=== PATIENT | male | born 1935 | race Caucasian/White ===

== ENCOUNTER → 2017-06-01 | Day surgery (SDC) | payer MEDICARE, BC ==
[~2017-06-01] MED LIST: Lactated Ringers 1,000 ML IV SCH; Propofol 200 MG/20 ML SDV IV ONE; Sodium Chloride 0.9% 500 ML IV SCH
[2017-06-01 11:47] VITALS: BP 137/62
--- NOTE | 2017-06-05 07:23 | OR ---
DATE OF OPERATION: 06/01/2017 PREOPERATIVE DIAGNOSIS: 1. SWEET ESOPHAGUS. 2. HISTORY OF POLYPS. POSTOPERATIVE DIAGNOSIS: 1. SWEET ESOPHAGUS. 2. HISTORY OF POLYPS. SURGEON: Suraj Pimentel MD PROCEDURE: 1. EGD WITH BIOPSIES X4, ADELAIDA. 2. FULL-LENGTH COLONOSCOPY WITH SNARE POLYPECTOMY X1. 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 COMPLICATIONS: None. SPECIMEN: 1. Antral biopsy x2. 2. ADELAIDA. 3. Inflammatory polyps fundus. 4. Distal esophageal biopsies x2. 5. Tubulovillous adenoma of cecum. FINDINGS: 1. Full-length EGD. 2. Antral gastritis without ulceration. 3. Short segment Sweet's without stricturing or ulceration. 4. Full-length colonoscopy. 5. 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 6. Sigmoid diverticulosis. 7. Two small inflammatory polyps fundus. RECOMMENDATIONS: Medical followup for reports in 2 weeks. INDICATIONS: The patient has a history of Sweet esophagus. He is due for surveillance. He also has a history of polyp removal. He needs colonoscopy. DESCRIPTION OF PROCEDURE: The patient was prepped and draped, placed in the left lateral decubitus position. A lubricated Olympus gastroscope was inserted over a bit and advanced to cricopharyngeus and easily intubated in the esophagus. The esophageal lining was benign until its most distal portion. The patient has a few residual areas of short segment Sweet's. Two biopsies of those 2 small areas were taken without any complication. There were no signs of any stricturing, ulceration, or spontaneous GERD. Scope was advanced into the stomach through the pylorus and into the second portion of the duodenum. This and the duodenal bulb were benign. There was a small amount of gastritis of the distal antrum and 2 biopsies were taken along with a CLOtest. Retroflexion for full visualization of the rest of the fundus and cardia were unremarkable. The patient did have 2 small inflammatory polyps in the fundus of the stomach, and we did remove 1 in its entirety with 2 forceps biopsies. CLOtest was obtained. Air was then suctioned and scope was removed without complication. A lubricated Olympus colonoscope was inserted and safely and easily advanced to the cecum. Right in the cecal pouch from near the appendiceal orifice, the patient had a large tubulovillous adenoma greater than 0.5 cm. It was removed with a snare and suctioned into polyp trap #1 without difficulty. The rest of the right transverse and descending colon were benign. The patient does have scattered diverticular disease in the sigmoid colon, but no further signs of polyp, mass, ulceration, or bleeding sites were seen. The rectal vault was unremarkable. Retroflexion showed no perianal lesions. Air was suctioned. Scope was removed without complication. JAIMEE/SAMIA /[id number]
== END ==
LOC: CC.SDS 09:16
PROVIDERS: ATTEND Family Medicine
DX: Z12.11 Encounter for screening for malignant neoplasm of colon (principal); D12.0 Benign neoplasm of cecum; K31.7 Polyp of stomach and duodenum; K57.30 Diverticulosis of large intestine without perforation or abscess without bleeding; K21.0 Gastro-esophageal reflux disease with esophagitis; N40.0 Benign prostatic hyperplasia without lower urinary tract symptoms; Z86.010 Personal history of colon polyps; I10 Essential (primary) hypertension; E78.5 Hyperlipidemia, unspecified; Z79.82 Long term (current) use of aspirin; Z88.8 Allergy status to other drugs, medicaments and biological substances; Z79.899 Other long term (current) drug therapy; Z90.49 Acquired absence of other specified parts of digestive tract; Z72.0 Tobacco use
CPT/HCPCS: 00810; 43239; 45385; 87081; 88305; J2704; J7040

== ENCOUNTER → 2019-12-26 | Day surgery (SDC) | payer MEDICARE, BC ==
[~2019-12-26] MED LIST changes: +Ketamine 200 MG/20 ML MDV IV ONE; -Lactated Ringers 1,000 ML IV SCH; -Sodium Chloride 0.9% 500 ML IV SCH
[2019-12-26] MEDS: Lactated Ringers 1,000 ML IV SCH (08:58)
[2019-12-26 10:18] VITALS: BP 146/74; PULSE 60
--- NOTE | 2019-12-26 11:52 | OR ---
DATE OF OPERATION: 12/26/2019 PREOPERATIVE DIAGNOSIS: HISTORY OF SWEET'S. POSTOPERATIVE DIAGNOSIS: HISTORY OF SWEET'S. SURGEON: Suraj Pimentel MD PROCEDURE: SURVEILLANCE EGD. ANESTHESIA: MAC. COMPLICATIONS: None. SPECIMEN: 1. Fundal polyp biopsy x2. 2. Distal esophageal biopsy x2. FINDINGS: 1. Full-length EGD. 2. Adenomatous polyp of fundus. 3. Short-segment Sweet's, minimal. RECOMMENDATIONS: Two-year followup scope pending path report. INDICATIONS: The patient has a history of Sweet's in his past. It has been 2 years since his last EGD. We elected to proceed with surveillance scope. DESCRIPTION OF PROCEDURE: The patient was prepped and draped, placed in the left lateral decubitus position. A lubricated Olympus gastroscope was inserted over a bit, advanced to cricopharyngeus area, and easily intubated into the esophagus. The esophageal lining was benign until its most distal portion. His Z-line was crisp and sharp at 34 cm. There were 2 little small areas of short- segment Sweet's above this, both were biopsied. No other abnormalities were seen. No stricturing. The scope was advanced into the stomach, through the pylorus, and into the second portion of the duodenum. This and the duodenal bulb were benign. The scope was brought back in the stomach and retroflexed. The upper fundus and cardia appeared unremarkable. In the mid to distal portion of the fundus, the patient had a stalked adenomatous polyp. We elected to take 2 biopsies of this. No other lesions were seen. Air was suctioned, scope removed without complication. JAIMEE/SAMIA /[id number]
== END ==
LOC: CC.SDS 08:35
PROVIDERS: ATTEND Family Medicine
DX: K22.70 Barrett's esophagus without dysplasia (principal); K29.70 Gastritis, unspecified, without bleeding; K31.7 Polyp of stomach and duodenum; K21.0 Gastro-esophageal reflux disease with esophagitis; N40.0 Benign prostatic hyperplasia without lower urinary tract symptoms; I44.2 Atrioventricular block, complete; E78.5 Hyperlipidemia, unspecified; E11.9 Type 2 diabetes mellitus without complications; M54.2 Cervicalgia; C60.9 Malignant neoplasm of penis, unspecified; I11.9 Hypertensive heart disease without heart failure; Z11.59 Encounter for screening for other viral diseases; Z88.8 Allergy status to other drugs, medicaments and biological substances; Z79.84 Long term (current) use of oral hypoglycemic drugs; Z79.899 Other long term (current) drug therapy; Z95.0 Presence of cardiac pacemaker
CPT/HCPCS: 00731; 43239; 88305; J2704; J7120; U0002

== ENCOUNTER 2020-05-21 12:00 | Inpatient (IN) | payer MEDICARE, BC ==
--- NOTE | 2020-05-21 12:43 | EDM.PDOC ---
ED HPI GENERAL MEDICAL PROBLEM - General Chief Complaint: General Stated Complaint: COVID+. Weakness Time Seen by Provider: 05/21/20 12:25 Source of Information: Reports: Patient, RN History Limitations: Reports: Altered Mental Status - History of Present Illness INITIAL COMMENTS - FREE TEXT/NARRATIVE: Pt was told on Sunday that he had COVID and told to isolate. He states that he hasn't ate anything since then because he doesn't eat at home. He eats all his meals at [employer]. He didn't want to ask anybody to get him food. He states he dran about 3 cups of water yesterday. Friend checked on him today and found him more confused and weak and brought him to the ER. He denies SOB but does have occasional cough. Onset: Gradual - Related Data Allergies Allergy/AdvReac Type Severity Reaction Status Date / Time guaifenesin [From Entex LQ] Allergy Headache Verified 05/21/20 12:27 phenylephrine HCl Allergy Headache Verified 05/21/20 12:27 [From Entex LQ] pseudoephedrine HCl Allergy Diaphoresis Verified 05/21/20 12:27 [From Mucinex D] STEROID Allergy Cannot Uncoded 05/21/20 12:27 Remember Home Meds: Home Meds Omeprazole [Prilosec] 20 mg PO BID 10/08/13 [History] Tamsulosin [Flomax] 0.4 mg PO DAILY 10/08/13 [History] Simvastatin [Zocor] 40 mg PO BEDTIME 01/05/14 [History] Potassium Chloride 10 meq PO BID #60 01/06/14 [Rx] Finasteride [Proscar] 5 mg PO DAILY 08/27/14 [History] glipiZIDE [Glipizide ER] 5 mg PO DAILY 08/08/15 [History] lisinopriL [Lisinopril] 10 mg PO DAILY 12/24/19 [History] Past Medical History HEENT History: Reports: Hard of Hearing, Impaired Vision Cardiovascular History: Reports: High Cholesterol, Hypertension, Pacemaker Gastrointestinal History: Reports: GERD Other Gastrointestinal History: GE Genitourinary History: Reports: UTI, Recurrent Endocrine/Metabolic History: Reports: Diabetes, Type II Oncologic (Cancer) History: Reports: Other (See Below) Other Oncologic History: penile - Past Surgical History GI Surgical History: Reports: Appendectomy, Cholecystectomy, Colonoscopy, EGD, Hernia Repair/Other Male Surgical History: Reports: Other (See Below) 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 Denies: Shortness of Breath Cardiovascular: Reports: No Symptoms Endocrine: Reports: No Symptoms GI/Abdominal: Denies: Abdominal Pain, Constipation, Diarrhea, Nausea, Vomiting : Reports: No Symptoms Skin: Reports: No Symptoms Neurological: Reports: Confusion, Weakness ED EXAM, GENERAL - Physical Exam Exam: See Below Exam Limited By: No Limitations General Appearance: Alert, WD/WN, No Apparent Distress Ears: Normal External Exam, Normal Canal, Normal TMs Nose: Normal Inspection Throat/Mouth: Normal Inspection, Normal Oropharynx, Other (mouth is very dry.) Head: Atraumatic, Normocephalic Neck: Normal Inspection, Supple, Non-Tender Respiratory/Chest: Lungs Clear, Normal Breath Sounds Cardiovascular: Regular Rate, Rhythm, No Edema GI/Abdominal: Normal Bowel Sounds, Soft, Non-Tender, No Organomegaly Back Exam: Normal Inspection Extremities: Normal Inspection, Normal Range of Motion, No Pedal Edema, Normal Capillary Refill Neurological: Alert, Confused (to day.) Skin Exam: Warm, Dry, Intact (very dry sin) Course - Vital Signs Last Recorded V/S: Last Vital Signs Temp 98.3 F 05/24/20 02:56 Pulse 65 05/24/20 02:56 Resp 20 05/24/20 02:56 BP 162/65 H 05/24/20 02:56 Pulse Ox 96 05/24/20 02:56 - Orders/Labs/Meds Orders: Medication Orders Acetaminophen (Tylenol) 650 mg PO Q4H PRN PRN Reason: Pain (Mild 1-3)/fever Last Admin: 05/23/20 19:49 Dose: 650 mg Documented by: Admin: 05/21/20 20:23 Dose: 650 mg Documented by: ISRA Enoxaparin Sodium (Lovenox) 30 mg SUBCUT DAILY@1999 [facility] Last Admin: 05/23/20 19:48 Dose: 30 mg Documented by: Admin: 05/22/20 20:01 Dose: 30 mg Documented by: ISRA Finasteride (Proscar) 5 mg PO DAILY [facility] Last Admin: 05/23/20 07:40 Dose: 5 mg Documented by: Admin: 05/22/20 07:46 Dose: 5 mg Documented by: BINH Glipizide (Glucotrol Xl) 5 mg PO DAILY [facility] Last Admin: 05/23/20 07:40 Dose: 5 mg Documented by: Admin: 05/22/20 07:46 Dose: Not Given Documented by: BINH Ibuprofen (Motrin) 800 mg PO Q8H PRN PRN Reason: Fever Last Admin: 05/22/20 20:00 Dose: 800 mg Documented by: ISAR Lisinopril (Prinivil) 10 mg PO DAILY [facility] Last Admin: 05/23/20 07:40 Dose: 10 mg Documented by: Admin: 05/22/20 07:46 Dose: 10 mg Documented by: BINH Ondansetron HCl (Zofran Odt) 4 mg PO Q4H PRN PRN Reason: nausea, able to take PO Pantoprazole Sodium (Protonix) 40 mg PO BID [facility] Last Admin: 05/23/20 19:48 Dose: 40 mg Documented by: Admin: 05/23/20 07:40 Dose: 40 mg Documented by: Admin: 05/22/20 20:00 Dose: 40 mg Documented by: Admin: 05/22/20 07:46 Dose: 40 mg Documented by: Admin: 05/21/20 20:21 Dose: 40 mg Documented by: ISRA Potassium Chloride (Klor-Con 10) 10 meq PO BID [facility] Last Admin: 05/23/20 19:47 Dose: 10 meq Documented by: Admin: 05/23/20 07:40 Dose: 10 meq Documented by: Admin: 05/22/20 20:00 Dose: 10 meq Documented by: Admin: 05/22/20 07:46 Dose: 10 meq Documented by: Admin: 05/21/20 20:21 Dose: 10 meq Documented by: ISRA Simvastatin (Zocor) 40 mg PO BEDTIME [facility] Last Admin: 05/23/20 19:49 Dose: 40 mg Documented by: Admin: 05/22/20 20:00 Dose: 40 mg Documented by: Admin: 05/21/20 20:21 Dose: 40 mg Documented by: ISRA Sodium Chloride (Saline Flush) 10 ml FLUSH ASDIRECTED PRN PRN Reason: Keep Vein Open Tamsulosin HCl (Flomax) 0.4 mg PO DAILY [facility] Last Admin: 05/23/20 07:40 Dose: 0.4 mg Documented by: Admin: 05/22/20 07:46 Dose: 0.4 mg Documented by: BINH Labs: Laboratory Tests 05/21/20 05/21/20 05/21/20 Range/Units 12:27 12:27 12:27 WBC 5.6 (5.0-10.0) 10^3/uL RBC 5.31 (4.50-6.00) 10^6/uL Hgb 14.5 (14.0-18.0) g/dL Hct 44.9 (40.0-54.0) % MCV 84.6 (82.0-94.0) fL MCH 27.3 (27.0-32.0) pg MCHC 32.3 L (33.0-38.0) g/dL RDW Coeff of Erinn 15.8 H (11.0-15.0) % Plt Count 243 (150-400) 10^3/uL Neut % (Auto) 72.6 (35-85) % Lymph % (Auto) 12.1 (10-55) % Darke % (Auto) 15.1 (0-16) % Eos % (Auto) 0 (0-5) % Baso % (Auto) 0.2 (0-3) % Neut # (Auto) 4.09 (1.80-7.00) 10^3/uL Lymph # (Auto) 0.68 L (1.00-4.80) 10^3/uL Darke # (Auto) 0.85 H (0.00-0.80) 10^3/uL Eos # (Auto) 0.00 (0.00-0.45) 10^3/uL Baso # (Auto) 0.01 10^3/uL D-Dimer, Quantitative 2.29 H (0.00-0.50) Sodium 139 (136-145) mEq/L Potassium 4.9 (3.5-5.0) mEq/L Chloride 106 (98-106) mEq/L Carbon Dioxide 15 L D (21-32) mmol/L BUN 49 H D (7-18) mg/dL Creatinine 2.4 H D (0.7-1.3) mg/dL Est Cr Clr Drug Dosing 21.05 mL/min Estimated GFR (MDRD) 26 L (>=60) mL/min Glucose 53 L D (75-99) mg/dL Lactic Acid (0.4-2.0) mmol/L Calcium 8.6 (8.4-10.1) mg/dL Magnesium 2.3 (1.8-2.4) mg/dL Total Bilirubin 0.4 (0.0-1.0) mg/dL AST 37 (15-37) U/L ALT 25 (12-78) U/L Alkaline Phosphatase 64 (46-116) U/L C-Reactive Protein 7.4 H (0.2-0.8) mg/dL Total Protein 7.3 (6.4-8.2) g/dL Albumin 3.1 L (3.4-5.0) g/dL 05/21/20 Range/Units 12:27 WBC (5.0-10.0) 10^3/uL RBC (4.50-6.00) 10^6/uL Hgb (14.0-18.0) g/dL Hct (40.0-54.0) % MCV (82.0-94.0) fL MCH (27.0-32.0) pg MCHC (33.0-38.0) g/dL RDW Coeff of Erinn (11.0-15.0) % Plt Count (150-400) 10^3/uL Neut % (Auto) (35-85) % Lymph % (Auto) (10-55) % Darke % (Auto) (0-16) % Eos % (Auto) (0-5) % Baso % (Auto) (0-3) % Neut # (Auto) (1.80-7.00) 10^3/uL Lymph # (Auto) (1.00-4.80) 10^3/uL Darke # (Auto) (0.00-0.80) 10^3/uL Eos # (Auto) (0.00-0.45) 10^3/uL Baso # (Auto) 10^3/uL D-Dimer, Quantitative (0.00-0.50) Sodium (136-145) mEq/L Potassium (3.5-5.0) mEq/L Chloride (98-106) mEq/L Carbon Dioxide (21-32) mmol/L BUN (7-18) mg/dL Creatinine (0.7-1.3) mg/dL Est Cr Clr Drug Dosing mL/min Estimated GFR (MDRD) (>=60) mL/min Glucose (75-99) mg/dL Lactic Acid 1.5 (0.4-2.0) mmol/L Calcium (8.4-10.1) mg/dL Magnesium (1.8-2.4) mg/dL Total Bilirubin (0.0-1.0) mg/dL AST (15-37) U/L ALT (12-78) U/L Alkaline Phosphatase (46-116) U/L C-Reactive Protein (0.2-0.8) mg/dL Total Protein (6.4-8.2) g/dL Albumin (3.4-5.0) g/dL Meds: Medications Generic Name Dose Route Start Last Admin Trade Name Freq PRN Reason Stop Dose Admin Acetaminophen 650 mg 05/21/20 13:25 05/23/20 19:49 Tylenol PO 650 mg Q4H PRN Administration Pain (Mild 1-3)/fever Enoxaparin Sodium 30 mg 05/22/20 20:00 05/23/20 19:48 Lovenox SUBCUT 30 mg DAILY@1999 [facility] Administration Finasteride 5 mg 05/22/20 08:00 05/23/20 07:40 Proscar PO 5 mg DAILY CARMEN Administration Glipizide 5 mg 05/22/20 08:00 05/23/20 07:40 Glucotrol Xl PO 5 mg DAILY CARMEN Administration Ibuprofen 800 mg 05/21/20 22:01 05/22/20 20:00 Motrin PO 800 mg Q8H PRN Administration Fever Lisinopril 10 mg 05/22/20 08:00 05/23/20 07:40 Prinivil PO 10 mg DAILY CARMEN Administration Ondansetron HCl 4 mg 05/21/20 13:25 Zofran Odt PO Q4H PRN nausea, able to take PO Pantoprazole Sodium 40 mg 05/21/20 20:00 05/23/20 19:48 Protonix PO 40 mg BID CARMEN Administration Potassium Chloride 10 meq 05/21/20 20:00 05/23/20 19:47 Klor-Con 10 PO 10 meq BID CARMEN Administration Simvastatin 40 mg 05/21/20 20:00 05/23/20 19:49 Zocor PO 40 mg BEDTIME CARMEN Administration Sodium Chloride 10 ml 05/21/20 13:25 Saline Flush FLUSH ASDIRECTED PRN Keep Vein Open Tamsulosin HCl 0.4 mg 05/22/20 08:00 05/23/20 07:40 Flomax PO 0.4 mg DAILY CARMEN Administration Discontinued Medications Generic Name Dose Route Start Last Admin Trade Name Freq PRN Reason Stop Dose Admin Dextrose/Sodium Chloride 1,000 mls @ 100 mls/hr 05/21/20 13:15 05/21/20 13:20 Dextrose 5%-1/2 Ns IV 100 mls/hr ASDIRECTED CARMEN Administration Sodium Chloride 1,000 mls @ 75 mls/hr 05/21/20 16:00 05/22/20 20:02 Normal Saline IV 75 mls/hr ASDIRECTED CARMEN Administration Departure - Departure Time of Disposition: 14:30 Disposition: Admitted As Inpatient 68 Condition: Fair Clinical Impression: COVID-19, Weakness, Failure to thrive in adult - Discharge Information *PRESCRIPTION DRUG MONITORING PROGRAM REVIEWED*: Not Applicable *COPY OF PRESCRIPTION DRUG MONITORING REPORT IN PATIENT TAMIKO: Not Applicable Sepsis Event Note (ED) - Evaluation Sepsis Screening Result: No Definite Risk - Problem List & Annotations (1) COVID-19 SNOMED Code(s): 214060785 Code(s): U07.1 - COVID-19 Status: Acute Priority: High Current Visit: Yes (2) Failure to thrive in adult SNOMED Code(s): 190316947 Code(s): R62.7 - ADULT FAILURE TO THRIVE Status: Acute Priority: High Current Visit: Yes (3) Weakness SNOMED Code(s): 30792364 Code(s): R53.1 - WEAKNESS Status: Acute Priority: High Current Visit: Yes - Problem List Review Problem List Initiated/Reviewed/Updated: Yes - Assessment/Plan Admission H&P: Please use this note as an admission H&P
[2020-05-21] MEDS ORDERED: Dextrose 5%-0.45% NaCl 1,000 ML IV SCH (13:15)
[2020-05-21] MEDS ORDERED: Ondansetron 4 MG Tab.DIS PO PRN (13:25)
[2020-05-21] MEDS ORDERED: Sodium Chloride 0.9% 10 ML Syringe FLUSH PRN (13:25)
[2020-05-21] MEDS: Sodium Chloride 0.9% 1,000 ML IV SCH (16:17)
[2020-05-21] MEDS: Potassium Chloride 10 MEQ Tab.ER PO SCH (20:21)
[2020-05-21] MEDS: Simvastatin 40 MG Tab PO SCH (20:21)
[2020-05-21] MEDS: Pantoprazole 40 MG Tab.CR PO SCH (20:21)
[2020-05-21] MEDS: Acetaminophen 325 MG Tab PO PRN (20:23)
[2020-05-21] MEDS ORDERED: Ibuprofen 200 MG Tab PO PRN (22:01)
[2020-05-22] MEDS: Sodium Chloride 0.9% 1,000 ML IV SCH ×2 (05:21→20:02)
[2020-05-22] MEDS: Pantoprazole 40 MG Tab.CR PO SCH ×2 (07:46→20:00)
[2020-05-22] MEDS: Tamsulosin 0.4 MG Cap.ER PO SCH (07:46)
[2020-05-22] MEDS: Finasteride 5 MG Tab PO SCH (07:46)
[2020-05-22] MEDS: Lisinopril 10 MG Tab PO SCH (07:46)
[2020-05-22] MEDS: glipiZIDE 5 MG Tab.ER PO SCH (07:46)
[2020-05-22] MEDS: Potassium Chloride 10 MEQ Tab.ER PO SCH ×2 (07:46→20:00)
--- NOTE | 2020-05-22 10:43 | PCM.PN ---
- General Info Date of Service: 05/22/20 Functional Status: Reports: Pain Controlled, Tolerating Diet, Ambulating (with assistance) - Review of Systems General: Reports: Weakness (generalized), Fatigue HEENT: Reports: No Symptoms Pulmonary: Reports: Shortness of Breath (mild) Cardiovascular: Reports: No Symptoms Gastrointestinal: Reports: No Symptoms Genitourinary: Reports: No Symptoms Musculoskeletal: Reports: No Symptoms Skin: Reports: No Symptoms Neurological: Reports: No Symptoms Psychiatric: Reports: No Symptoms - Patient Data Vitals - Most Recent: Last Vital Signs Temp 97.8 F 05/22/20 07:56 Pulse 68 05/22/20 07:56 Resp 16 05/22/20 07:56 BP 120/66 05/22/20 07:56 Pulse Ox 97 05/22/20 07:56 Weight - Most Recent: 150 lb I&O - Last 24 Hours: Intake & Output 05/21/20 05/22/20 05/22/20 22:59 06:59 14:59 Intake Total 1180 Output Total 200 Balance 980 Lab Results Last 24 Hours: Laboratory Results - last 24 hr 05/21/20 05/21/20 05/21/20 Range/Units 12:27 12:27 12:27 WBC 5.6 (5.0-10.0) 10^3/uL RBC 5.31 (4.50-6.00) 10^6/uL Hgb 14.5 (14.0-18.0) g/dL Hct 44.9 (40.0-54.0) % MCV 84.6 (82.0-94.0) fL MCH 27.3 (27.0-32.0) pg MCHC 32.3 L (33.0-38.0) g/dL RDW Coeff of Erinn 15.8 H (11.0-15.0) % Plt Count 243 (150-400) 10^3/uL Neut % (Auto) 72.6 (35-85) % Lymph % (Auto) 12.1 (10-55) % [place] % (Auto) 15.1 (0-16) % Eos % (Auto) 0 (0-5) % Baso % (Auto) 0.2 (0-3) % Neut # (Auto) 4.09 (1.80-7.00) 10^3/uL Lymph # (Auto) 0.68 L (1.00-4.80) 10^3/uL [place] # (Auto) 0.85 H (0.00-0.80) 10^3/uL Eos # (Auto) 0.00 (0.00-0.45) 10^3/uL Baso # (Auto) 0.01 10^3/uL Add Manual Diff Neutrophils % (Manual) (35-85) % Band Neutrophils % (0-5) % Lymphocytes % (Manual) (21-55) % Monocytes % (Manual) (2-12) % Eosinophils % (Manual) (0-5) % Absolute Neutrophils (1.80-7.00) 10^3/uL Lymphocytes # (Manual) (1.00-4.80) 10^3/uL Monocytes # (Manual) (0.00-0.80) 10^3/uL Eosinophils # (Manual) (0.00-0.45) 10^3/uL Platelet Estimate (ADEQUATE) D-Dimer, Quantitative 2.29 H (0.00-0.50) Sodium 139 (136-145) mEq/L Potassium 4.9 (3.5-5.0) mEq/L Chloride 106 (98-106) mEq/L Carbon Dioxide 15 L D (21-32) mmol/L BUN 49 H D (7-18) mg/dL Creatinine 2.4 H D (0.7-1.3) mg/dL Est Cr Clr Drug Dosing 21.05 mL/min Estimated GFR (MDRD) 26 L (>=60) mL/min Glucose 53 L D (75-99) mg/dL Lactic Acid (0.4-2.0) mmol/L Calcium 8.6 (8.4-10.1) mg/dL Magnesium 2.3 (1.8-2.4) mg/dL Total Bilirubin 0.4 (0.0-1.0) mg/dL AST 37 (15-37) U/L ALT 25 (12-78) U/L Alkaline Phosphatase 64 (46-116) U/L C-Reactive Protein 7.4 H (0.2-0.8) mg/dL Total Protein 7.3 (6.4-8.2) g/dL Albumin 3.1 L (3.4-5.0) g/dL 05/21/20 05/22/20 05/22/20 Range/Units 12:27 07:05 07:05 WBC 3.9 L (5.0-10.0) 10^3/uL RBC 4.51 (4.50-6.00) 10^6/uL Hgb 12.1 L (14.0-18.0) g/dL Hct 38.2 L (40.0-54.0) % MCV 84.7 (82.0-94.0) fL MCH 26.8 L (27.0-32.0) pg MCHC 31.7 L (33.0-38.0) g/dL RDW Coeff of Erinn 15.4 H (11.0-15.0) % Plt Count 197 (150-400) 10^3/uL Neut % (Auto) (35-85) % Lymph % (Auto) (10-55) % [place] % (Auto) (0-16) % Eos % (Auto) (0-5) % Baso % (Auto) (0-3) % Neut # (Auto) (1.80-7.00) 10^3/uL Lymph # (Auto) (1.00-4.80) 10^3/uL [place] # (Auto) (0.00-0.80) 10^3/uL Eos # (Auto) (0.00-0.45) 10^3/uL Baso # (Auto) 10^3/uL Add Manual Diff Yes Neutrophils % (Manual) 60 (35-85) % Band Neutrophils % 2 (0-5) % Lymphocytes % (Manual) 20 L (21-55) % Monocytes % (Manual) 17 H (2-12) % Eosinophils % (Manual) 1 (0-5) % Absolute Neutrophils 2.42 (1.80-7.00) 10^3/uL Lymphocytes # (Manual) 0.78 L (1.00-4.80) 10^3/uL Monocytes # (Manual) 0.66 (0.00-0.80) 10^3/uL Eosinophils # (Manual) 0.04 (0.00-0.45) 10^3/uL Platelet Estimate Adequate (ADEQUATE) D-Dimer, Quantitative 0.83 H (0.00-0.50) Sodium (136-145) mEq/L Potassium (3.5-5.0) mEq/L Chloride (98-106) mEq/L Carbon Dioxide (21-32) mmol/L BUN (7-18) mg/dL Creatinine (0.7-1.3) mg/dL Est Cr Clr Drug Dosing mL/min Estimated GFR (MDRD) (>=60) mL/min Glucose (75-99) mg/dL Lactic Acid 1.5 (0.4-2.0) mmol/L Calcium (8.4-10.1) mg/dL Magnesium (1.8-2.4) mg/dL Total Bilirubin (0.0-1.0) mg/dL AST (15-37) U/L ALT (12-78) U/L Alkaline Phosphatase (46-116) U/L C-Reactive Protein (0.2-0.8) mg/dL Total Protein (6.4-8.2) g/dL Albumin (3.4-5.0) g/dL 05/22/20 Range/Units 07:05 WBC (5.0-10.0) 10^3/uL RBC (4.50-6.00) 10^6/uL Hgb (14.0-18.0) g/dL Hct (40.0-54.0) % MCV (82.0-94.0) fL MCH (27.0-32.0) pg MCHC (33.0-38.0) g/dL RDW Coeff of Erinn (11.0-15.0) % Plt Count (150-400) 10^3/uL Neut % (Auto) (35-85) % Lymph % (Auto) (10-55) % [place] % (Auto) (0-16) % Eos % (Auto) (0-5) % Baso % (Auto) (0-3) % Neut # (Auto) (1.80-7.00) 10^3/uL Lymph # (Auto) (1.00-4.80) 10^3/uL [place] # (Auto) (0.00-0.80) 10^3/uL Eos # (Auto) (0.00-0.45) 10^3/uL Baso # (Auto) 10^3/uL Add Manual Diff Neutrophils % (Manual) (35-85) % Band Neutrophils % (0-5) % Lymphocytes % (Manual) (21-55) % Monocytes % (Manual) (2-12) % Eosinophils % (Manual) (0-5) % Absolute Neutrophils (1.80-7.00) 10^3/uL Lymphocytes # (Manual) (1.00-4.80) 10^3/uL Monocytes # (Manual) (0.00-0.80) 10^3/uL Eosinophils # (Manual) (0.00-0.45) 10^3/uL Platelet Estimate (ADEQUATE) D-Dimer, Quantitative (0.00-0.50) Sodium 139 (136-145) mEq/L Potassium 4.5 (3.5-5.0) mEq/L Chloride 109 H (98-106) mEq/L Carbon Dioxide 18 L (21-32) mmol/L BUN 43 H (7-18) mg/dL Creatinine 1.9 H (0.7-1.3) mg/dL Est Cr Clr Drug Dosing 24.67 mL/min Estimated GFR (MDRD) 34 L (>=60) mL/min Glucose 79 D (75-99) mg/dL Lactic Acid (0.4-2.0) mmol/L Calcium 7.4 L (8.4-10.1) mg/dL Magnesium (1.8-2.4) mg/dL Total Bilirubin 0.3 (0.0-1.0) mg/dL AST 40 H (15-37) U/L ALT 23 (12-78) U/L Alkaline Phosphatase 49 (46-116) U/L C-Reactive Protein 4.0 H (0.2-0.8) mg/dL Total Protein 5.7 L (6.4-8.2) g/dL Albumin 2.3 L (3.4-5.0) g/dL Med Orders - Current: Current Medications Acetaminophen (Tylenol) 650 mg PO Q4H PRN PRN Reason: Pain (Mild 1-3)/fever Last Admin: 05/21/20 20:23 Dose: 650 mg Documented by: Enoxaparin Sodium (Lovenox) 30 mg SUBCUT DAILY@2000 [facility] Finasteride (Proscar) 5 mg PO DAILY [facility] Last Admin: 05/22/20 07:46 Dose: 5 mg Documented by: Glipizide (Glucotrol Xl) 5 mg PO DAILY [facility] Last Admin: 05/22/20 07:46 Dose: Not Given Documented by: Sodium Chloride (Normal Saline) 1,000 mls @ 75 mls/hr IV ASDIRECTED [facility] Last Admin: 05/22/20 05:21 Dose: 75 mls/hr Documented by: Ibuprofen (Motrin) 800 mg PO Q8H PRN PRN Reason: Fever Lisinopril (Prinivil) 10 mg PO DAILY [facility] Last Admin: 05/22/20 07:46 Dose: 10 mg Documented by: Ondansetron HCl (Zofran Odt) 4 mg PO Q4H PRN PRN Reason: nausea, able to take PO Pantoprazole Sodium (Protonix) 40 mg PO BID [facility] Last Admin: 05/22/20 07:46 Dose: 40 mg Documented by: Potassium Chloride (Klor-Con 10) 10 meq PO BID [facility] Last Admin: 05/22/20 07:46 Dose: 10 meq Documented by: Simvastatin (Zocor) 40 mg PO BEDTIME [facility] Last Admin: 05/21/20 20:21 Dose: 40 mg Documented by: Sodium Chloride (Saline Flush) 10 ml FLUSH ASDIRECTED PRN PRN Reason: Keep Vein Open Tamsulosin HCl (Flomax) 0.4 mg PO DAILY [facility] Last Admin: 05/22/20 07:46 Dose: 0.4 mg Documented by: Discontinued Medications Dextrose/Sodium Chloride (Dextrose 5%-1/2 Ns) 1,000 mls @ 100 mls/hr IV ASDIRECTED [facility] Last Admin: 05/21/20 13:20 Dose: 100 mls/hr Documented by: - Exam General: Alert, Oriented, Cooperative, No Acute Distress Neck: Supple, Trachea Midline Lungs: Clear to Auscultation, Normal Respiratory Effort Cardiovascular: Regular Rate, Regular Rhythm Back Exam: Normal Inspection Extremities: Normal Inspection, No Pedal Edema Peripheral Pulses: 2+: Radial (L), Radial (R), Posterior Tibial (L), Posterior Tibial (R), Dorsalis Pedis (L), Dorsalis Pedis (R) Skin: Warm, Dry, Intact Neurological: Normal Speech Psy/Mental Status: Alert, Normal Affect, Normal Mood Sepsis Event Note - Evaluation Sepsis Screening Result: No Definite Risk - Focused Exam Vital Signs: Vital Signs Temp Pulse Resp BP BP Pulse Ox 05/22/20 07:56 97.8 F 68 16 120/66 97 05/22/20 07:46 120/66 05/22/20 04:00 98.1 F 63 18 152/72 H 95 05/21/20 23:12 98 F 66 18 97/54 L 93 L - Problem List Review Problem List Initiated/Reviewed/Updated: Yes - My Orders Last 24 Hours: My Active Orders 05/21/20 22:01 Ibuprofen [Motrin] 800 mg PO Q8H PRN - Plan Plan:: This patient is an 85 year old male that was admitted yesterday for positive COVID and renal insufficiency. It is reported the patient was not eating or drinking at home because he did not want to bother anyone to get him food. The patient admit labs were CR 2.4, BUN 49. Today labs are CR 1.9, BUN 43. So, there has been improvement. His CR is normally 1.3. Will continue to hydrate, admit, if improves more, will discharge. His CRP today is also 4.0, yesterday was 7.4. Patient reports that he has mild shortness of breath, generally weak, decreased appetite.
[2020-05-22] MEDS: Simvastatin 40 MG Tab PO SCH (20:00)
[2020-05-22] MEDS: Enoxaparin 30 MG/0.3 ML Syringe SUBCUT SCH (20:01)
[2020-05-23] MEDS: Tamsulosin 0.4 MG Cap.ER PO SCH (07:40)
[2020-05-23] MEDS: Lisinopril 10 MG Tab PO SCH (07:40)
[2020-05-23] MEDS: Finasteride 5 MG Tab PO SCH (07:40)
[2020-05-23] MEDS: Pantoprazole 40 MG Tab.CR PO SCH ×2 (07:40→19:48)
[2020-05-23] MEDS: Potassium Chloride 10 MEQ Tab.ER PO SCH ×2 (07:40→19:47)
[2020-05-23] MEDS: glipiZIDE 5 MG Tab.ER PO SCH (07:40)
--- NOTE | 2020-05-23 11:25 | PCM.PN ---
- General Info Date of Service: 05/23/20 Functional Status: Reports: Pain Controlled, Tolerating Diet, Ambulating, Urinating - Review of Systems General: Reports: Fatigue HEENT: Reports: No Symptoms Pulmonary: Reports: No Symptoms. Denies: Shortness of Breath Cardiovascular: Reports: No Symptoms Gastrointestinal: Reports: No Symptoms Genitourinary: Reports: No Symptoms Musculoskeletal: Reports: No Symptoms Skin: Reports: No Symptoms Neurological: Reports: No Symptoms Psychiatric: Reports: No Symptoms - Patient Data Vitals - Most Recent: Last Vital Signs Temp 99 F 05/23/20 07:49 Pulse 63 05/23/20 07:49 Resp 18 05/23/20 07:49 BP 134/66 05/23/20 07:49 Pulse Ox 96 05/23/20 07:49 Weight - Most Recent: 150 lb I&O - Last 24 Hours: Intake & Output 05/22/20 05/23/20 05/23/20 22:59 06:59 14:59 Intake Total 1400 250 Output Total 150 600 Balance 1250 -350 Lab Results Last 24 Hours: Laboratory Results - last 24 hr 05/23/20 05/23/20 05/23/20 Range/Units 07:05 07:05 07:05 WBC 3.8 L (5.0-10.0) 10^3/uL RBC 4.50 (4.50-6.00) 10^6/uL Hgb 12.1 L (14.0-18.0) g/dL Hct 38.4 L (40.0-54.0) % MCV 85.3 (82.0-94.0) fL MCH 26.9 L (27.0-32.0) pg MCHC 31.5 L (33.0-38.0) g/dL RDW Coeff of Erinn 15.5 H (11.0-15.0) % Plt Count 173 (150-400) 10^3/uL Neut % (Auto) 54.5 (35-85) % Lymph % (Auto) 30.0 (10-55) % [place] % (Auto) 13.4 (0-16) % Eos % (Auto) 1.8 (0-5) % Baso % (Auto) 0.3 (0-3) % Neut # (Auto) 2.07 (1.80-7.00) 10^3/uL Lymph # (Auto) 1.14 (1.00-4.80) 10^3/uL [place] # (Auto) 0.51 (0.00-0.80) 10^3/uL Eos # (Auto) 0.07 (0.00-0.45) 10^3/uL Baso # (Auto) 0.01 10^3/uL D-Dimer, Quantitative 0.86 H (0.00-0.50) Sodium 141 (136-145) mEq/L Potassium 4.5 (3.5-5.0) mEq/L Chloride 111 H (98-106) mEq/L Carbon Dioxide 21 (21-32) mmol/L BUN 30 H (7-18) mg/dL Creatinine 1.7 H (0.7-1.3) mg/dL Est Cr Clr Drug Dosing 27.57 mL/min Estimated GFR (MDRD) 39 L (>=60) mL/min Glucose 90 (75-99) mg/dL Calcium 7.4 L (8.4-10.1) mg/dL Total Bilirubin 0.2 (0.0-1.0) mg/dL AST 37 (15-37) U/L ALT 21 (12-78) U/L Alkaline Phosphatase 51 (46-116) U/L C-Reactive Protein 2.3 H (0.2-0.8) mg/dL Total Protein 5.4 L (6.4-8.2) g/dL Albumin 2.3 L (3.4-5.0) g/dL Med Orders - Current: Current Medications Acetaminophen (Tylenol) 650 mg PO Q4H PRN PRN Reason: Pain (Mild 1-3)/fever Last Admin: 05/21/20 20:23 Dose: 650 mg Documented by: Enoxaparin Sodium (Lovenox) 30 mg SUBCUT DAILY@1999 [facility] Last Admin: 05/22/20 20:01 Dose: 30 mg Documented by: Finasteride (Proscar) 5 mg PO DAILY [facility] Last Admin: 05/23/20 07:40 Dose: 5 mg Documented by: Glipizide (Glucotrol Xl) 5 mg PO DAILY [facility] Last Admin: 05/23/20 07:40 Dose: 5 mg Documented by: Ibuprofen (Motrin) 800 mg PO Q8H PRN PRN Reason: Fever Last Admin: 05/22/20 20:00 Dose: 800 mg Documented by: Lisinopril (Prinivil) 10 mg PO DAILY [facility] Last Admin: 05/23/20 07:40 Dose: 10 mg Documented by: Ondansetron HCl (Zofran Odt) 4 mg PO Q4H PRN PRN Reason: nausea, able to take PO Pantoprazole Sodium (Protonix) 40 mg PO BID [facility] Last Admin: 05/23/20 07:40 Dose: 40 mg Documented by: Potassium Chloride (Klor-Con 10) 10 meq PO BID [facility] Last Admin: 05/23/20 07:40 Dose: 10 meq Documented by: Simvastatin (Zocor) 40 mg PO BEDTIME [facility] Last Admin: 05/22/20 20:00 Dose: 40 mg Documented by: Sodium Chloride (Saline Flush) 10 ml FLUSH ASDIRECTED PRN PRN Reason: Keep Vein Open Tamsulosin HCl (Flomax) 0.4 mg PO DAILY [facility] Last Admin: 05/23/20 07:40 Dose: 0.4 mg Documented by: Discontinued Medications Dextrose/Sodium Chloride (Dextrose 5%-1/2 Ns) 1,000 mls @ 100 mls/hr IV ASDIRECTED [facility] Last Admin: 05/21/20 13:20 Dose: 100 mls/hr Documented by: Sodium Chloride (Normal Saline) 1,000 mls @ 75 mls/hr IV ASDIRECTED [facility] Last Admin: 05/22/20 20:02 Dose: 75 mls/hr Documented by: - Exam General: Alert, Oriented, Cooperative, No Acute Distress Neck: Supple, Trachea Midline Lungs: Clear to Auscultation, Normal Respiratory Effort Cardiovascular: Regular Rate, Regular Rhythm, No Murmurs Back Exam: Normal Inspection Extremities: Normal Inspection, Normal Range of Motion, Non-Tender, No Pedal Edema, Normal Capillary Refill Peripheral Pulses: 2+: Radial (L), Radial (R), Posterior Tibial (L), Posterior Tibial (R), Dorsalis Pedis (L), Dorsalis Pedis (R) Skin: Warm, Dry, Intact Neurological: No New Focal Deficit Psy/Mental Status: Alert, Normal Affect, Normal Mood Sepsis Event Note - Evaluation Sepsis Screening Result: No Definite Risk - Focused Exam Vital Signs: Vital Signs Temp Pulse Resp BP BP Pulse Ox 05/23/20 07:49 99 F 63 18 134/66 96 05/23/20 07:40 134/66 05/23/20 03:44 97.6 F 63 18 111/66 95 05/22/20 23:25 97.2 F 60 18 102/57 L 93 L - Problem List Review Problem List Initiated/Reviewed/Updated: Yes - Plan Plan:: 05/22/20 0900am This patient is an 85 year old male that was admitted yesterday for positive COVID and renal insufficiency. It is reported the patient was not eating or drinking at home because he did not want to bother anyone to get him food. The patient admit labs were CR 2.4, BUN 49. Today labs are CR 1.9, BUN 43. So, there has been improvement. His CR is normally 1.3. Will continue to hydrate, admit, if improves more, will discharge. His CRP today is also 4.0, yesterday was 7.4. Patient reports that he has mild shortness of breath, generally weak, decreased appetite. 05/23/2020 1100am Patient today reports mild fatigue. Patient has no other complaints at this time. Patient CR today is 1.7. His baseline is usually 1.5-1.7. His labs otherwise are unremarkable. Due to the patient not eating at home, and he said that he has no food at home. I do not feel it is safe to safely discharge this patient home today. I am not sure he has the ability to prepare his own meals and if he has no food in the house. I will keep the patient until tomorrow and let marriage and family social worker see the patient to see if we can come up with a plan for this patient. Will know more about a discharge about this patient after speaking with marriage and family social worker tomorrow about a safe plan to discharge.
[2020-05-23] MEDS: Enoxaparin 30 MG/0.3 ML Syringe SUBCUT SCH (19:48)
[2020-05-23] MEDS: Simvastatin 40 MG Tab PO SCH (19:49)
[2020-05-23] MEDS: Acetaminophen 325 MG Tab PO PRN (19:49)
[2020-05-24] MEDS: glipiZIDE 5 MG Tab.ER PO SCH (07:56)
[2020-05-24] MEDS: Lisinopril 10 MG Tab PO SCH (07:56)
[2020-05-24] MEDS: Finasteride 5 MG Tab PO SCH (07:56)
[2020-05-24] MEDS: Tamsulosin 0.4 MG Cap.ER PO SCH (07:56)
[2020-05-24] MEDS: Pantoprazole 40 MG Tab.CR PO SCH (07:56)
[2020-05-24] MEDS: Potassium Chloride 10 MEQ Tab.ER PO SCH (07:56)
[2020-05-24 07:57] VITALS: BP 143/73
[2020-05-24 08:53] VITALS: PULSE 64
--- NOTE | 2020-05-24 09:45 | PCM.DCSUM1 ---
Discharge Summary - Hospital Course HPI Initial Comments: This patient is an 85 year old male admitted for renal insufficiency. His CR is now within his baseline. Patient is alert and oriented. 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 The patient refuses senior care. He reports he does not want to stay in the hospital any longer. He is alert and oriented and able to make this decision. [employer] contacted and has talked with the patient. They have set up Meals on Wheels for this patient to start today. I will discharge this patient home. - Discharge Data Discharge Date: 05/24/20 Discharge Disposition: Home, Self-Care 01 Condition: Fair - Referral to Home Health Primary Care Physician: Suraj Pimentel MD - Patient Summary/Data Consults: Consultations 05/21/20 14:13 Consult to Physical Therapy [PT Evaluation and Treatment] [CONS] Routine - Patient Instructions Diet: Usual Diet as Tolerated Diet, Other: Meals on Wheels Activity: As Tolerated Driving: Do Not Drive Showering/Bathing: May Shower Notify Provider of: Fever, Nausea and/or Vomiting Other/Special Instructions: Followup with primary care provider this week. Return to the ER for worsening of condition or any emergent cooncerns. Meals on Wheels to start today - Discharge Plan *PRESCRIPTION DRUG MONITORING PROGRAM REVIEWED*: Not Applicable *COPY OF PRESCRIPTION DRUG MONITORING REPORT IN PATIENT TAMIKO: Not Applicable Home Medications: Home Meds Omeprazole [Prilosec] 20 mg PO BID 10/08/13 [History] Tamsulosin [Flomax] 0.4 mg PO DAILY 10/08/13 [History] Simvastatin [Zocor] 40 mg PO BEDTIME 01/05/14 [History] Potassium Chloride 10 meq PO BID #60 01/06/14 [Rx] Finasteride [Proscar] 5 mg PO DAILY 08/27/14 [History] glipiZIDE [Glipizide ER] 5 mg PO DAILY 08/08/15 [History] lisinopriL [Lisinopril] 10 mg PO DAILY 12/24/19 [History] Forms: ED Department Discharge Referrals: Suraj Pimentel MD [Primary Care Provider] - - Discharge Summary/Plan Comment DC Time >30 min.: No - General Info Date of Service: 05/24/20 Functional Status: Reports: Pain Controlled, Tolerating Diet, Ambulating, Urinating - Review of Systems General: Reports: No Symptoms HEENT: Reports: No Symptoms Pulmonary: Reports: No Symptoms Cardiovascular: Reports: No Symptoms Gastrointestinal: Reports: No Symptoms Genitourinary: Reports: No Symptoms Musculoskeletal: Reports: No Symptoms Skin: Reports: No Symptoms Neurological: Reports: No Symptoms Psychiatric: Reports: No Symptoms - Patient Data Vitals - Most Recent: Last Vital Signs Temp 99.1 F 05/24/20 08:00 Pulse 64 05/24/20 08:00 Resp 18 05/24/20 08:00 BP 143/73 H 05/24/20 08:00 Pulse Ox 96 05/24/20 08:00 Weight - Most Recent: 150 lb I&O - Last 24 hours: Intake & Output 05/23/20 05/24/20 05/24/20 22:59 06:59 14:59 Intake Total 400 240 Output Total 350 400 Balance 50 -160 Lab Results - Last 24 hrs: Laboratory Results - last 24 hr 05/24/20 05/24/20 Range/Units 07:05 07:05 WBC 4.4 L (5.0-10.0) 10^3/uL RBC 4.72 (4.50-6.00) 10^6/uL Hgb 12.7 L (14.0-18.0) g/dL Hct 39.7 L (40.0-54.0) % MCV 84.1 (82.0-94.0) fL MCH 26.9 L (27.0-32.0) pg MCHC 32.0 L (33.0-38.0) g/dL RDW Coeff of Erinn 15.3 H (11.0-15.0) % Plt Count 190 (150-400) 10^3/uL Add Manual Diff Yes Neutrophils % (Manual) 62 (35-85) % Band Neutrophils % 1 (0-5) % Lymphocytes % (Manual) 26 (21-55) % Monocytes % (Manual) 8 (2-12) % Eosinophils % (Manual) 2 (0-5) % Basophils % (Manual) 1 (0-3) % Absolute Neutrophils 2.77 (1.80-7.00) 10^3/uL Lymphocytes # (Manual) 1.14 (1.00-4.80) 10^3/uL Monocytes # (Manual) 0.35 (0.00-0.80) 10^3/uL Eosinophils # (Manual) 0.09 (0.00-0.45) 10^3/uL Basophils # (Manual) 0.04 10^3/uL Sodium 139 (136-145) mEq/L Potassium 4.2 (3.5-5.0) mEq/L Chloride 109 H (98-106) mEq/L Carbon Dioxide 21 (21-32) mmol/L BUN 21 H (7-18) mg/dL Creatinine 1.6 H (0.7-1.3) mg/dL Est Cr Clr Drug Dosing 29.29 mL/min Estimated GFR (MDRD) 41 L (>=60) mL/min Glucose 50 L D (75-99) mg/dL Calcium 7.8 L (8.4-10.1) mg/dL Total Bilirubin 0.3 (0.0-1.0) mg/dL AST 38 H (15-37) U/L ALT 22 (12-78) U/L Alkaline Phosphatase 61 (46-116) U/L C-Reactive Protein 2.2 H (0.2-0.8) mg/dL Total Protein 5.9 L (6.4-8.2) g/dL Albumin 2.5 L (3.4-5.0) g/dL Med Orders - Current: Current Medications Acetaminophen (Tylenol) 650 mg PO Q4H PRN PRN Reason: Pain (Mild 1-3)/fever Last Admin: 05/23/20 19:49 Dose: 650 mg Documented by: Enoxaparin Sodium (Lovenox) 30 mg SUBCUT DAILY@1999 [facility] Last Admin: 05/23/20 19:48 Dose: 30 mg Documented by: Finasteride (Proscar) 5 mg PO DAILY [facility] Last Admin: 05/24/20 07:56 Dose: 5 mg Documented by: Glipizide (Glucotrol Xl) 5 mg PO DAILY [facility] Last Admin: 05/24/20 07:56 Dose: 5 mg Documented by: Ibuprofen (Motrin) 800 mg PO Q8H PRN PRN Reason: Fever Last Admin: 05/22/20 20:00 Dose: 800 mg Documented by: Lisinopril (Prinivil) 10 mg PO DAILY [facility] Last Admin: 05/24/20 07:56 Dose: 10 mg Documented by: Ondansetron HCl (Zofran Odt) 4 mg PO Q4H PRN PRN Reason: nausea, able to take PO Pantoprazole Sodium (Protonix) 40 mg PO BID [facility] Last Admin: 05/24/20 07:56 Dose: 40 mg Documented by: Potassium Chloride (Klor-Con 10) 10 meq PO BID [facility] Last Admin: 05/24/20 07:56 Dose: 10 meq Documented by: Simvastatin (Zocor) 40 mg PO BEDTIME [facility] Last Admin: 05/23/20 19:49 Dose: 40 mg Documented by: Sodium Chloride (Saline Flush) 10 ml FLUSH ASDIRECTED PRN PRN Reason: Keep Vein Open Tamsulosin HCl (Flomax) 0.4 mg PO DAILY [facility] Last Admin: 05/24/20 07:56 Dose: 0.4 mg Documented by: Discontinued Medications Dextrose/Sodium Chloride (Dextrose 5%-1/2 Ns) 1,000 mls @ 100 mls/hr IV ASDIRECTED [facility] Last Admin: 05/21/20 13:20 Dose: 100 mls/hr Documented by: Sodium Chloride (Normal Saline) 1,000 mls @ 75 mls/hr IV ASDIRECTED [facility] Last Admin: 05/22/20 20:02 Dose: 75 mls/hr Documented by: - Exam General: Reports: Alert, Oriented, Cooperative, No Acute Distress Neck: Reports: Supple, Trachea Midline, No JVD Lungs: Reports: Clear to Auscultation, Normal Respiratory Effort Cardiovascular: Reports: Regular Rate, Regular Rhythm, No Murmurs GI/Abdominal Exam: Soft, Non-Tender Back Exam: Reports: Full Range of Motion, CVA Tenderness (R) Extremities: Normal Inspection, Normal Range of Motion, Non-Tender, No Pedal Edema, Normal Capillary Refill Skin: Reports: Warm, Dry, Intact Neurological: Reports: No New Focal Deficit, Normal Gait, Normal Speech, Sensation Intact, Cranial Nerves Intact, Other (Mini Mental Status Exam: 28: mild dementia. ) Psy/Mental Status: Reports: Alert, Normal Affect, Normal Mood
== END 2020-05-24 13:00 | disposition home or self-care (01) | DRG 179 ==
LOC: CC.ED 12:00 → UNDOADMIN 13:21 → CC.MS 13:21
PROVIDERS: ADMIT Physician Assistant Medical; ATTEND Family Medicine
DX: U07.1 COVID-19 (principal); F03.90 Unspecified dementia, unspecified severity, without behavioral disturbance, psychotic disturbance, mood disturbance, and anxiety; N28.9 Disorder of kidney and ureter, unspecified; Z90.49 Acquired absence of other specified parts of digestive tract; Z98.890 Other specified postprocedural states; K21.9 Gastro-esophageal reflux disease without esophagitis; E78.5 Hyperlipidemia, unspecified; I10 Essential (primary) hypertension; Z95.0 Presence of cardiac pacemaker; Z87.440 Personal history of urinary (tract) infections; E11.9 Type 2 diabetes mellitus without complications; Z79.4 Long term (current) use of insulin
CPT/HCPCS: 36415; 71045; 80053; 83605; 83735; 85025; 85379; 86140; 93005; 93010; 99285-25; A9270-GY; J1650; J7030; J7042

== ENCOUNTER 2020-05-27 15:15 | Emergency (ER) | payer MEDICARE, BC ==
[2020-05-27 16:26] LABS: PTT,PARTIAL THROMBOPLSTIN TIME 29.4 SEC (23.2-32.3)
== END 2020-05-27 16:30 ==
LOC: CC.ED 15:15
DX: U07.1 COVID-19 (principal); R62.7 Adult failure to thrive; E78.00 Pure hypercholesterolemia, unspecified; I10 Essential (primary) hypertension; K21.9 Gastro-esophageal reflux disease without esophagitis; E11.9 Type 2 diabetes mellitus without complications; Z87.440 Personal history of urinary (tract) infections; Z88.8 Allergy status to other drugs, medicaments and biological substances; Z79.899 Other long term (current) drug therapy
CPT/HCPCS: 36415; 71045; 80053; 81003; 82550; 83605; 83880; 84484; 85025; 85379; 85610; 85730; 93010; 99285-25

== ENCOUNTER 2021-02-24 10:51 | Observation (INO) | payer MEDICARE, BC ==
[2021-02-24 11:27] LABS: CHLORIDE,CL 104 mEq/L (98-106); SODIUM,NA 141 mEq/L (136-145)
[2021-02-24] MEDS ORDERED: Acetaminophen 325 MG Tab PO PRN (12:28)
[2021-02-24] MEDS ORDERED: Glucagon,Human Recombinant 1 MG Vial IM PRN (12:28)
[2021-02-24] MEDS ORDERED: 50% Dextrose in Water 50 ML Syringe IVPUSH PRN (12:28)
[2021-02-24] MEDS ORDERED: Ondansetron 4 MG/2 ML SDV IV PRN (12:28)
[2021-02-24] MEDS ORDERED: Sodium Chloride 0.9% 1,000 ML IV SCH (12:45)
[2021-02-24] MEDS: Insulin Lispro 100 Units/ML 3 ML Vial SUBCUT SCH ×2 (17:44→19:59)
[2021-02-24] MEDS: Finasteride 5 MG Tab **PTOM PO SCH (17:47)
[2021-02-24] MEDS: Tamsulosin 0.4 MG Cap.ER **PTOM PO SCH (19:55)
[2021-02-24] MEDS ORDERED: Insulin Glarg,Human.Rec.Analog 100 Unit/ML SUBCUT SCH (20:00)
[2021-02-25 07:22] LABS: CHLORIDE,CL 110 mEq/L (98-106); SODIUM,NA 144 mEq/L (136-145)
[2021-02-25] MEDS: Insulin Lispro 100 Units/ML 3 ML Vial SUBCUT SCH ×4 (07:46→20:00)
[2021-02-25] MEDS: Enoxaparin 30 MG/0.3 ML Syringe SUBCUT SCH (08:26)
[2021-02-25] MEDS: Polyethylene Glycol 3350 Powder 17 GM Packet PO SCH (08:27)
[2021-02-25] MEDS: Pantoprazole 40 MG Tab.CR **PTOM PO SCH (08:27)
[2021-02-25] MEDS: Psyllium Husk Powder Sugar Free 5.85 GM Packet PO SCH (08:28)
--- NOTE | 2021-02-25 11:47 | PN ---
DATE: 02/25/2021 S: Juan Luis is an 85-year-old male, well known to me, who saw Yamil recently for some abdominal pain. At the time he was seen, he had a blood sugar of 400, really had no metabolic abnormalities, but his creatinine was up slightly, but for the most part, these are chronic issues for him. At some point, he had been on metformin and what had been apparently stopped in the last month and his sugars have been running a little bit high, although I did review the log from [facility] and most of his blood sugars on a weekly basis have been under 200. I do not have a current A1c as he has not been in our facility for some time since he has went into assisted living. He did have a CT scan of his abdomen, which was negative other than his diverticulosis, but there are no acute inflammatory changes. He has been afebrile since being here. Vital signs have been fine. He has had no further complaints of abdominal pain, although he does have what sounds be like chronic constipation, which he takes MiraLAX and Metamucil for on a regular basis. O: VITAL SIGNS: Juan Luis is in his usual state. He is alert, pleasant, and cooperative. Appears in no distress. HEENT: Grossly benign. NECK: Supple. LUNGS: Clear. CARDIAC: Tones appear regular. ABDOMEN: Soft and nontender. EXTREMITIES: No peripheral edema is seen. SKIN: Without any signs of cellulitis. ASSESSMENT: 1. TYPE 2 DIABETES, UNCONTROLLED. 2. ABDOMINAL PAIN, IMPROVED. 3. CHRONIC CONSTIPATION. 4. HYPERTENSION, CONTROLLED. 5. BPH, STABLE. 6. STAGE 3 CHRONIC KIDNEY DISEASE. P: We will start the patient on Januvia 50 mg a day. Did talk to him about going home on just a long-acting insulin. He declines that and so we have not given him since admission. He got 10 units of Lantus on admit, and we have been using sliding scale, but he likely will be able to be controlled with an oral hypoglycemic. For now, no other changes. Abdominal pain seems to be gone. His creatinine is back down from 2 on admit to 1.6 and sugars have been running better. Plan for him to be discharged tomorrow. JAIMEE/SAMIA /[id number]
[2021-02-25] MEDS: Finasteride 5 MG Tab **PTOM PO SCH (17:58)
[2021-02-25] MEDS: Tamsulosin 0.4 MG Cap.ER **PTOM PO SCH (19:58)
[2021-02-26 07:40] VITALS: PULSE 74
[2021-02-26] MEDS: Insulin Lispro 100 Units/ML 3 ML Vial SUBCUT SCH (07:59)
[2021-02-26] MEDS: Pantoprazole 40 MG Tab.CR **PTOM PO SCH (07:59)
[2021-02-26] MEDS: Psyllium Husk Powder Sugar Free 5.85 GM Packet PO SCH (07:59)
[2021-02-26 08:00] VITALS: BP 147/76
[2021-02-26] MEDS: Polyethylene Glycol 3350 Powder 17 GM Packet PO SCH (08:00)
[2021-02-26] MEDS ORDERED: METFORMIN 750 MG PO SCH (08:00)
[2021-02-26] MEDS: Enoxaparin 30 MG/0.3 ML Syringe SUBCUT SCH (08:00)
--- NOTE | 2021-02-26 13:30 | PCM.DCSUM1 ---
Discharge Summary - Hospital Course Free Text/Narrative:: Juan Luis is an 85 year old male who presented to clinic to see Yamil Patrick for increasing abdominal pain. Patient resident at the [facility] and had been complaining of pain for the last 16 hours and was increasing. Had history of constipation but is now currently on stool softeners. Had felt bloated and was belching a great deal. Labs did note elevation of WBC at 12.6, CRP negative. Flat and upright unremarkable. Creatinine high at 2.0. Glucose high at 412. Known history of diabetes, had previously been on metformin but was stopped when patient had covid and has been doing well. CT scan without contrast was done without acute changes. Admitted for control of diabetes, Lantus initiated with sliding scale insulin. Diagnosis: Stroke: No Modified Brighton Scale: No Symptoms at All Modified Brighton Scale Score: 0 - Discharge Data Discharge Date: 02/26/21 Discharge Disposition: Home, Self-Care 01 Condition: Good - Referral to Home Health Primary Care Physician: Jem Patrick PA-C - Discharge Diagnosis/Problem(s) (1) Abdominal pain SNOMED Code(s): 10588353 ICD Code: R10.9 - UNSPECIFIED ABDOMINAL PAIN Status: Acute Priority: High Qualifiers: Abdominal location: generalized Qualified Code(s): R10.84 - Generalized abdominal pain - Patient Summary/Data Complications: none Hospital Course: Patient is doing well. Has been eating well. Ambulating a great deal. Denies any further abdominal pain. labs did improve with IV fluids. Creatinine down to 1.6 which is near his baseline. WBC 11. CRP remains negative. Sodium and potassium now within normal limits. Blood sugars in better control in the 200s. Due to improvement of creatinine and hydration, patient had his metformin resumed and will return home on that with follow up labs in 2 weeks and visit with Dr. Pimentel. Lantus was given on admit but patient declined returning back to the [facility] on this. - Patient Instructions Diet: Diabetic Diet Activity: As Tolerated - Discharge Plan *PRESCRIPTION DRUG MONITORING PROGRAM REVIEWED*: No *COPY OF PRESCRIPTION DRUG MONITORING REPORT IN PATIENT TAMIKO: No Home Medications: Home Meds Tamsulosin [Flomax] 0.4 mg PO BEDTIME 10/08/13 [History] Simvastatin [Zocor] 40 mg PO BEDTIME 01/05/14 [History] Potassium Chloride 10 meq PO BID #60 01/06/14 [Rx] Finasteride [Proscar] 5 mg PO DAILY 08/27/14 [History] lisinopriL [Lisinopril] 10 mg PO DAILY 12/24/19 [History] Acetaminophen [Tylenol] 1 - 2 tab PO Q6H PRN 02/24/21 [History] Pantoprazole Sodium [Protonix] 40 mg PO DAILY 02/24/21 [History] Psyllium Husk [Metamucil] 1 tbsp PO DAILY 02/24/21 [History] metFORMIN HCl [Metformin ER Osmotic] 750 mg PO DAILY 02/25/21 [History] polyethylene glycoL 3350 [MiraLAX] 17 gm PO DAILY PRN #30 02/26/21 [Rx] - Discharge Summary/Plan Comment DC Time >30 min.: Yes Total # of Minutes for Discharge Time: 30 - General Info Date of Service: 02/26/21 Admission Dx/Problem (Free Text: Abdominal Pain Functional Status: Reports: Pain Controlled, Tolerating Diet, Ambulating, Urinating - Review of Systems General: Denies: Fever, Weakness, Fatigue, Malaise HEENT: Denies: Eye Pain, Headaches, Sinus Congestion Pulmonary: Denies: Shortness of Breath, Cough Cardiovascular: Denies: Chest Pain, Edema, Lightheadedness Gastrointestinal: Denies: Abdominal Pain, Constipation, Decreased Appetite, Nausea, Vomiting Genitourinary: Reports: No Symptoms Musculoskeletal: Reports: No Symptoms Skin: Reports: No Symptoms Neurological: Reports: No Symptoms - Patient Data Vitals - Most Recent: Last Vital Signs Temp 96.5 F L 02/26/21 07:40 Pulse 74 02/26/21 07:40 Resp 16 02/26/21 07:40 BP 147/76 H 02/26/21 07:59 Pulse Ox 97 02/26/21 07:40 Weight - Most Recent: 153 lb 9.6 oz Lab Results - Last 24 hrs: Laboratory Results - last 24 hr 02/25/21 02/25/21 02/26/21 Range/Units 17:48 19:27 07:37 POC Glucose 110 H 229 H 133 H (75-105) mg/dL Med Orders - Current: Current Medications Discontinued Medications Acetaminophen (Acetaminophen 325 Mg Tab) 650 mg PO Q4H PRN PRN Reason: Pain (Mild 1-3)/fever Last Admin: 02/25/21 22:13 Dose: 650 mg Documented by: Dextrose/Water (50% Dextrose In Water 50 Ml Syringe) 50 ml IVPUSH ASDIRECTED PRN PRN Reason: Hypoglycemia Enoxaparin Sodium (Enoxaparin 30 Mg/0.3 Ml Syringe) 30 mg SUBCUT Q24H [facility] Last Admin: 02/26/21 08:00 Dose: 30 mg Documented by: Finasteride (Finasteride 5 Mg Tab Ptom) 5 mg PO DAILY@1730 [facility] Last Admin: 02/25/21 17:58 Dose: 5 mg Documented by: Glucagon (Glucagon,Human Recombinant 1 Mg Vial) 1 mg IM ASDIRECTED PRN PRN Reason: Hypoglycemia Sodium Chloride (Normal Saline) 1,000 mls @ 100 mls/hr IV ASDIRECTED [facility] Last Admin: 02/24/21 14:10 Dose: 100 mls/hr Documented by: Insulin Glargine (Insulin Glarg,Human.Rec.Analog 100 Unit/Ml) 10 unit SUBCUT BEDTIME [facility] Last Admin: 02/24/21 20:03 Dose: 10 units Documented by: Insulin Human Lispro (Insulin Lispro 100 Units/Ml 3 Ml Vial) 0 unit SUBCUT WITHMEALSANDBED [facility]; Protocol Last Admin: 02/26/21 07:59 Dose: Not Given Documented by: Lisinopril (Lisinopril 10 Mg Tab Ptom) 10 mg PO DAILY [facility] Last Admin: 02/26/21 07:59 Dose: 10 mg Documented by: Metformin Er 750mg (Tab Ptom) 750 mg PO WITHBREAKFAST [facility] Last Admin: 02/26/21 07:58 Dose: 750 mg Documented by: Ondansetron HCl (Ondansetron 4 Mg/2 Ml Sdv) 4 mg IV Q4H PRN PRN Reason: Nausea/Vomiting Pantoprazole Sodium (Pantoprazole 40 Mg Tab.Cr Ptom) 40 mg PO DAILY [facility] Last Admin: 02/26/21 07:59 Dose: 40 mg Documented by: Polyethylene Glycol (Polyethylene Glycol 3350 Powder 17 Gm Packet) 17 gm PO DAILY [facility] Last Admin: 02/26/21 08:00 Dose: Not Given Documented by: Psyllium Husk (Psyllium Husk Powder Sugar Free 5.85 Gm Packet) 1 pkt PO DAILY [facility] Last Admin: 02/26/21 07:59 Dose: Not Given Documented by: Tamsulosin HCl (Tamsulosin 0.4 Mg Cap.Er Ptom) 0.4 mg PO BEDTIME [facility] Last Admin: 02/25/21 19:58 Dose: 0.4 mg Documented by: - Exam General: Reports: Alert, Oriented, Cooperative HEENT: Reports: Mucous Membr. Moist/[place] Neck: Reports: Supple Lungs: Reports: Clear to Auscultation, Normal Respiratory Effort Cardiovascular: Reports: Regular Rate, Regular Rhythm GI/Abdominal Exam: Normal Bowel Sounds, Soft, Non-Tender Skin: Reports: Warm, Dry Neurological: Reports: No New Focal Deficit
== END 2021-02-26 10:05 | disposition home or self-care (01) ==
LOC: CC.FCMC 10:51 → CC.MS 10:51 → UNDOADMOB 11:54 → CC.MS 12:28
PROVIDERS: ADMIT Physician Assistant Medical; ATTEND Family Medicine
DX: R10.84 Generalized abdominal pain (principal); N40.0 Benign prostatic hyperplasia without lower urinary tract symptoms; I10 Essential (primary) hypertension; K21.9 Gastro-esophageal reflux disease without esophagitis; E78.5 Hyperlipidemia, unspecified; K59.00 Constipation, unspecified; E11.9 Type 2 diabetes mellitus without complications; Z88.8 Allergy status to other drugs, medicaments and biological substances; Z79.899 Other long term (current) drug therapy; Z90.49 Acquired absence of other specified parts of digestive tract; Z98.890 Other specified postprocedural states
CPT/HCPCS: 36415; 74019; 74176; 80048; 80053; 82150; 82947; 83690; 85025; 86140; 96372; 99217; 99220; 99225; A9270-GY; G0378; J1650; J1815-GY; J7030

== ENCOUNTER → 2021-04-08 | Day surgery (SDC) | payer MEDICARE, BC ==
[~2021-04-08] MED LIST changes: -Ketamine 200 MG/20 ML MDV IV ONE; +Lactated Ringers 1,000 ML IV SCH; +Lidocaine 1% 30 ML SDV ONE; -Propofol 200 MG/20 ML SDV IV ONE; +Propofol 200 MG/20 ML SDV ONE
[2021-04-08 09:46] VITALS: BP 156/76; PULSE 63
--- NOTE | 2021-04-08 12:46 | OR ---
DATE OF OPERATION: 04/08/2021 PREOPERATIVE DIAGNOSIS: PERSISTENT ABDOMINAL PAIN, BLOATING. POSTOPERATIVE DIAGNOSIS: PERSISTENT ABDOMINAL PAIN, BLOATING. SURGEON: Suraj Pimentel MD PROCEDURE: DIAGNOSTIC COLONOSCOPY WITH BIOPSIES X5, ADELAIDA. ANESTHESIA: MAC. COMPLICATIONS: None. SPECIMEN: 1. Antral ADELAIDA. 2. Biopsy x2, Lara changes. 3. Biopsy x3, polyp/mass EG junction. FINDINGS: 1. Full-length diagnostic colonoscopy. 2. Normal stomach/duodenum. 3. Lara esophagus. 4. Polypoid mass, EG junction. RECOMMENDATIONS: We will continue with appropriate proton pump therapy. He will need followup with GI pending pathology results. 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 He has been having ongoing issues with epigastric bloating and pain. It was decided to have a repeat diagnostic scope on him. DESCRIPTION OF PROCEDURE: The patient was prepped and draped, placed in the left lateral decubitus position. A lubricated Olympus gastroscope was inserted over a bit, advanced to cricopharyngeus, and easily intubating the esophagus. The esophageal lining was benign until its most distal portion, where patient had Lara changes extending from approximately 33 cm. At that area there was also evidence of an esophageal polyp/mass. It arises at the level of the Lara changes. We did do 3 biopsies of this. Two door to door sales representative biopsies of the leading edge of the Lara changes were done as well. The scope was advanced into the stomach, through the pylorus, and into the second portion of the duodenum. This and the duodenal bulb were unremarkable. The scope was brought back into the stomach and retroflexed. The upper fundus and cardia appeared benign. Upon straightening, the rest of the fundus and antrum were unremarkable as well. No lesions, masses, or signs of peptic ulcer disease. A biopsy was taken for ADELAIDA at the antrum. Air was then suctioned. Scope removed without complication. JAIMEE/SAMIA /[id number]
== END ==
LOC: CC.SDS 07:50
PROVIDERS: ATTEND Family Medicine
DX: K22.70 Barrett's esophagus without dysplasia (principal); K29.50 Unspecified chronic gastritis without bleeding; K29.00 Acute gastritis without bleeding; K31.A29 Gastric intestinal metaplasia with dysplasia, unspecified; K59.00 Constipation, unspecified; E78.5 Hyperlipidemia, unspecified; K21.9 Gastro-esophageal reflux disease without esophagitis; E11.9 Type 2 diabetes mellitus without complications; K31.89 Other diseases of stomach and duodenum; Z88.8 Allergy status to other drugs, medicaments and biological substances; Z79.899 Other long term (current) drug therapy
CPT/HCPCS: 00811; 87081; 88305; 99100; J2704; J7120

== ENCOUNTER → 2021-10-21 | Day surgery (SDC) | payer MEDICARE, BC ==
[~2021-10-21] MED LIST changes: -Lidocaine 1% 30 ML SDV ONE; +Lidocaine 2% 5 ML SDV ONE; +fentaNYL 100 MCG/2 ML SDV ONE
[2021-10-21 10:34] VITALS: BP 164/78; PULSE 64
== END ==
LOC: CC.SDS 08:42
PROVIDERS: ATTEND Family Medicine
DX: K22.70 Barrett's esophagus without dysplasia (principal); K22.81 Esophageal polyp; K22.89 Other specified disease of esophagus; I10 Essential (primary) hypertension; N40.0 Benign prostatic hyperplasia without lower urinary tract symptoms; K21.9 Gastro-esophageal reflux disease without esophagitis; E78.5 Hyperlipidemia, unspecified; E11.9 Type 2 diabetes mellitus without complications; Z88.8 Allergy status to other drugs, medicaments and biological substances; Z79.84 Long term (current) use of oral hypoglycemic drugs; Z79.899 Other long term (current) drug therapy
CPT/HCPCS: 00731; 43239; 87081; J2704; J3010; J7120

== ENCOUNTER → 2021-10-27 | Day surgery (SDC) | payer MEDICARE, BC ==
[~2021-10-27] MED LIST changes: -Lidocaine 2% 5 ML SDV ONE
[2021-10-27 14:38] VITALS: BP 143/66; PULSE 62
== END ==
LOC: CC.SDS 08:56
PROVIDERS: ATTEND Surgery
DX: K22.81 Esophageal polyp (principal); K22.70 Barrett's esophagus without dysplasia; N40.0 Benign prostatic hyperplasia without lower urinary tract symptoms; I10 Essential (primary) hypertension; K21.9 Gastro-esophageal reflux disease without esophagitis; E78.5 Hyperlipidemia, unspecified; E11.9 Type 2 diabetes mellitus without complications; Z88.8 Allergy status to other drugs, medicaments and biological substances; Z79.84 Long term (current) use of oral hypoglycemic drugs; Z79.899 Other long term (current) drug therapy
CPT/HCPCS: 43239; J2704; J3010; J7120; 00731

== ENCOUNTER 2022-09-01 12:20 | Emergency (ER) | payer MEDICARE, BC ==
[2022-09-01 12:41] VITALS: BP 186/91; PULSE 80
[2022-09-01] MEDS ORDERED: Morphine 2 MG/ML SYRINGE IVPUSH ONE (12:50)
[2022-09-01] MEDS ORDERED: Ondansetron 4 MG/2 ML SDV IVPUSH PRN (12:50)
[2022-09-01] MEDS ORDERED: Ondansetron 4 MG/2 ML SDV IVPUSH ONE (12:51)
[2022-09-01] MEDS ORDERED: Sodium Chloride 0.9% 1,000 ML IV SCH (13:00)
[2022-09-01 13:21] LABS: PTT,PARTIAL THROMBOPLSTIN TIME 27.8 SEC (20.0-30.0)
== END 2022-09-01 15:48 | disposition home or self-care (01) ==
LOC: CC.ED 12:20
DX: K52.9 Noninfective gastroenteritis and colitis, unspecified (principal); N28.9 Disorder of kidney and ureter, unspecified; E78.00 Pure hypercholesterolemia, unspecified; I10 Essential (primary) hypertension; K21.9 Gastro-esophageal reflux disease without esophagitis; E11.9 Type 2 diabetes mellitus without complications; Z95.0 Presence of cardiac pacemaker; Z88.8 Allergy status to other drugs, medicaments and biological substances; Z79.899 Other long term (current) drug therapy; Z79.84 Long term (current) use of oral hypoglycemic drugs; Z20.822 Contact with and (suspected) exposure to COVID-19
CPT/HCPCS: 36415; 74176; 80053; 82150; 83690; 85025; 85610; 85730; 96361; 96374; 96375; 99284; J2270; J2405; J7030; U0002

== ENCOUNTER 2023-02-12 16:29 | Emergency (ER) | payer MEDICARE, BC ==
[2023-02-12] MEDS ORDERED: fentaNYL 50 MCG/ML SDV IVPUSH ONE (16:54)
[2023-02-12] MEDS ORDERED: Ondansetron 4 MG/2 ML SDV IVPUSH STA (16:54)
[2023-02-12 16:57] VITALS: BP 153/85; PULSE 85
[2023-02-12] MEDS ORDERED: Sodium Chloride 0.9% 1,000 ML IV SCH (17:00)
[2023-02-12 17:11] LABS: BASOPHILS ABSOLUTE AUTO 0.06 10^3/uL (0.00-0.50); BASOPHILS PERCENT AUTO 0.4 % (0-1); EOSINOPHILS ABSOLUTE AUTO 0.25 10^3/uL (0.00-1.50); EOSINOPHILS PERCENT AUTO 1.7 % (0-6); HEMATOCRIT 44.4 % (42.0-52.0); HEMOGLOBIN 15.3 g/dL (14.0-18.0); IMMATURE GRAN ABSOLUTE AUTO 0.15 10^3/uL (0.00-0.49); LYMPHOCYTES ABSOLUTE AUTO 1.91 10^3/uL (0.60-5.00); LYMPHOCYTES PERCENT AUTO 13.2 % (24-44); MEAN CORPUSCULAR HEMOGLOBIN 29.7 pg (27.0-32.0); MEAN CORPUSCULAR HGB CONC 34.5 g/dL (32.0-36.0); MONOCYTES ABSOLUTE AUTO 1.14 10^3/uL (0.00-1.50); MONOCYTES PERCENT AUTO 7.9 % (0-10); NEUTROPHILS ABSOLUTE AUTO 10.92 x10^3/uL (1.80-8.00); NEUTROPHILS PERCENT AUTO 75.8 % (41-71); PLATELET COUNT,PLT 281 10^3/uL (150-400); RED BLOOD CELL COUNT 5.16 x10^6/uL (4.50-6.00); WHITE BLOOD CELL COUNT,WBC 14.4 10^3/uL (4.0-11.0)
[2023-02-12 17:23] LABS: ALBUMIN 3.4 g/dL (3.4-5.0); BILIRUBIN TOTAL 0.5 mg/dL (0.0-1.0); CALCIUM 9.6 mg/dL (8.4-10.1); CREATININE 1.7 mg/dL (0.7-1.3); EST CRCL DRUG DOSING (CG) 22.47 mL/min; MAGNESIUM 1.5 mg/dL (1.8-2.4); POTASSIUM,K 4.5 mEq/L (3.5-5.0); PROTEIN TOTAL,TP 7.1 g/dL (6.4-8.2)
[2023-02-12] MEDS ORDERED: Iopamidol 755 Mg/ML 100 ML Bottle IVPUSH ONE (17:35)
[2023-02-12 18:08] LABS: APPEARANCE,URINE CLEAR (CLEAR); BILIRUBIN,URINE NEGATIVE (NEGATIVE); COLOR,URINE YELLOW (YELLOW); GLUCOSE,URINE NEGATIVE (NEGATIVE); KETONES,URINE NEGATIVE (NEGATIVE); LEUKOCYTE ESTERASE,URINE TRACE (NEGATIVE); NITRITE,URINE NEGATIVE (NEGATIVE); OCCULT BLOOD,URINE NEGATIVE (NEGATIVE); PROTEIN,URINE NEGATIVE (NEGATIVE); UROBILINOGEN,URINE 0.2 EU/dL (0.2-1.0)
[2023-02-12 18:18] LABS: BACTERIA,URINE OCCASIONAL /HPF (NOT SEEN); RBC,URINE 0-5 /HPF (0-5); SQUAMOUS EPITHELIAL CELLS,UR OCCASIONAL /HPF (NOT SEEN)
== END 2023-02-12 20:45 | disposition home or self-care (01) ==
LOC: CC.ED 16:29
DX: K52.9 Noninfective gastroenteritis and colitis, unspecified (principal); E78.00 Pure hypercholesterolemia, unspecified; I10 Essential (primary) hypertension; Z79.899 Other long term (current) drug therapy; Z86.16 Personal history of COVID-19; Z88.8 Allergy status to other drugs, medicaments and biological substances; Z20.822 Contact with and (suspected) exposure to COVID-19
CPT/HCPCS: 36415; 74177; 80053; 81001; 83605; 83735; 85025; 96361; 96374; 96375; 99284; 99284-25; J2405; J3010; J7030; Q9967; U0002

== ENCOUNTER 2023-02-13 08:20 | Emergency (ER) | payer MEDICARE, BC ==
[2023-02-13] MEDS ORDERED: Naloxone 2 MG/2 ML Syringe IVPUSH PRN (08:43)
[2023-02-13 08:45] LABS: HEMOGLOBIN 12.9 g/dL (14.0-18.0); MEAN CORPUSCULAR HEMOGLOBIN 29.8 pg (27.0-32.0); MEAN CORPUSCULAR HGB CONC 33.9 g/dL (32.0-36.0); MEAN CORPUSCULAR VOLUME 87.8 fL (83.0-97.0); PLATELET COUNT,PLT 331 10^3/uL (150-400); RED BLOOD CELL COUNT 4.33 x10^6/uL (4.50-6.00)
[2023-02-13] MEDS: Pantoprazole 40 MG Vial ONE (08:45)
[2023-02-13] MEDS: fentaNYL 100 MCG/2 ML SDV IV ONE (08:48)
[2023-02-13] MEDS: Pantoprazole 40 MG Vial IVPUSH ONE (08:49)
[2023-02-13 08:55] LABS: ALBUMIN 2.6 g/dL (3.4-5.0); BILIRUBIN TOTAL 0.5 mg/dL (0.0-1.0); CALCIUM 8.6 mg/dL (8.4-10.1); CREATININE 2.5 mg/dL (0.7-1.3); EST CRCL DRUG DOSING (CG) 15.28 mL/min; MAGNESIUM 1.4 mg/dL (1.8-2.4); POTASSIUM,K 5.5 mEq/L (3.5-5.0); PROTEIN TOTAL,TP 5.8 g/dL (6.4-8.2)
[2023-02-13] MEDS: Pantoprazole 40 MG in Sodium Chloride 0.9% 100 ML IV SCH (09:13)
[2023-02-13 09:15] LABS: LYMPHOCYTES ABSOLUTE MAN 1.68 10^3/uL (1.00-4.80); LYMPHOCYTES PERCENT MAN 6 % (21-55); MONOCYTES PERCENT MAN 5 % (2-12); NEUTROPHILS ABSOLUTE MAN 24.92 10^3/uL (1.80-7.00); SEG NEUTROPHILS PERCENT MAN 89 % (35-85)
[2023-02-13] MEDS: Sodium Chloride 0.9% 1,000 ML IV SCH (09:18)
[2023-02-13] MEDS: Piperacillin/Tazobactam 3.375 GM in Sodium Chloride 0.9% 100 ML IV ONE (10:33)
[2023-02-13] MEDS: Sodium Chloride 0.9% 500 ML IV SCH (11:08)
[2023-02-13 11:10] VITALS: PULSE 104
[2023-02-13] MEDS: Furosemide 40 MG/4 ML VIAL IVPUSH ONE (11:58)
[2023-02-13 12:17] VITALS: BP 167/60
== END 2023-02-13 12:06 ==
LOC: CC.ED 08:20
DX: A41.9 Sepsis, unspecified organism (principal); R65.20 Severe sepsis without septic shock; N17.9 Acute kidney failure, unspecified; K92.2 Gastrointestinal hemorrhage, unspecified; K92.0 Hematemesis; D72.829 Elevated white blood cell count, unspecified; E87.20 Acidosis, unspecified; E78.00 Pure hypercholesterolemia, unspecified; I10 Essential (primary) hypertension; K21.9 Gastro-esophageal reflux disease without esophagitis; E11.9 Type 2 diabetes mellitus without complications; Z86.16 Personal history of COVID-19; Z79.899 Other long term (current) drug therapy; Z79.84 Long term (current) use of oral hypoglycemic drugs; Z88.8 Allergy status to other drugs, medicaments and biological substances
CPT/HCPCS: 36415; 36430; 71045; 74176; 80053; 82272; 83605; 83735; 84484; 85025; 85730; 86850; 86900; 86901; 86920; 86922; 87040; 93005; 93010; 96365; 96366; 96368; 96375; 96376; 99284; 99285-25; C9113; J1940; J2543; J3010; J3490; J7030; J7040; P9016

== ENCOUNTER 2023-05-21 09:51 | Inpatient (IN) | payer MEDICARE, BC ==
[2023-05-21 10:28] LABS: BASOPHILS ABSOLUTE AUTO 0.06 10^3/uL (0.00-0.50); BASOPHILS PERCENT AUTO 0.8 % (0-1); EOSINOPHILS ABSOLUTE AUTO 0.37 10^3/uL (0.00-1.50); EOSINOPHILS PERCENT AUTO 5.1 % (0-6); HEMATOCRIT 28.3 % (42.0-52.0); HEMOGLOBIN 9.2 g/dL (14.0-18.0); IMMATURE GRAN ABSOLUTE AUTO 0.08 10^3/uL (0.00-0.49); IMMATURE GRAN PERCENT AUTO 1.1 % (0.0-4.9); LYMPHOCYTES ABSOLUTE AUTO 1.11 10^3/uL (0.60-5.00); LYMPHOCYTES PERCENT AUTO 15.4 % (24-44); MEAN CORPUSCULAR HEMOGLOBIN 29.5 pg (27.0-32.0); MEAN CORPUSCULAR HGB CONC 32.5 g/dL (32.0-36.0); MEAN CORPUSCULAR VOLUME 90.7 fL (83.0-97.0); MONOCYTES ABSOLUTE AUTO 0.69 10^3/uL (0.00-1.50); MONOCYTES PERCENT AUTO 9.6 % (0-10); NEUTROPHILS ABSOLUTE AUTO 4.88 x10^3/uL (1.80-8.00); PLATELET COUNT,PLT 205 10^3/uL (150-400); RED BLOOD CELL COUNT 3.12 x10^6/uL (4.50-6.00); WHITE BLOOD CELL COUNT,WBC 7.2 10^3/uL (4.0-11.0)
[2023-05-21 10:30] LABS: APPEARANCE,URINE SLIGHTLY CLOUDY (CLEAR); BILIRUBIN,URINE NEGATIVE (NEGATIVE); COLOR,URINE YELLOW (YELLOW); GLUCOSE,URINE NEGATIVE (NEGATIVE); KETONES,URINE NEGATIVE (NEGATIVE); LEUKOCYTE ESTERASE,URINE LARGE (NEGATIVE); NITRITE,URINE NEGATIVE (NEGATIVE); OCCULT BLOOD,URINE MODERATE (NEGATIVE); PH,URINE 5.5 (4.5-8.0); PROTEIN,URINE 100 mg/dL (NEGATIVE); UROBILINOGEN,URINE 0.2 EU/dL (0.2-1.0)
[2023-05-21 10:53] LABS: WBC,URINE >100 /HPF (0-5)
[2023-05-21 10:54] LABS: BACTERIA,URINE MODERATE /HPF (NOT SEEN); EPITHELIAL CELLS,URINE NOT SEEN /HPF (NOT SEEN); MUCUS,URINE FEW /HPF (NOT SEEN)
[2023-05-21 11:07] LABS: ALANINE AMINOTRANSFERASE,ALT 29 U/L (12-78); ALKALINE PHOSPHATASE 75 U/L (46-116); ASPARTATE AMNIOTRANSFERASE,AST 26 U/L (15-37); BILIRUBIN TOTAL 0.3 mg/dL (0.0-1.0); C-REACTIVE PROTEIN 1.16 mg/dL (<=0.30); CALCIUM 8.3 mg/dL (8.4-10.1); CARBON DIOXIDE,CO2 18 mmol/L (21-32); CHLORIDE,CL 105 mEq/L (98-106); GLUCOSE RANDOM 181 mg/dL (75-99); LIPASE 163 U/L (16-77); PROTEIN TOTAL,TP 6.9 g/dL (6.4-8.2); SODIUM,NA 141 mEq/L (136-145)
[2023-05-21 11:08] LABS: BLOOD UREA NITROGEN,BUN 143 mg/dL (7-18); CREATININE 8.5 mg/dL (0.7-1.3); ESTIMATED GFR 6 mL/min (>=60); POTASSIUM,K 6.1 mEq/L (3.5-5.0)
[2023-05-21] MEDS ORDERED: Ondansetron 4 MG Tab.DIS PO PRN (11:43)
[2023-05-21] MEDS ORDERED: Sodium Chloride 0.9% 10 ML Syringe FLUSH PRN (11:43)
[2023-05-21] MEDS ORDERED: Sodium Chloride 0.9% 1,000 ML IV ONE (11:43)
[2023-05-21] MEDS ORDERED: Ondansetron 4 MG/2 ML SDV IV PRN (11:43)
[2023-05-21] MEDS: cefTRIAXone 1 GM Vial IVPUSH SCH (12:19)
[2023-05-21] MEDS ORDERED: Aluminum Hydroxide/Magnesium Hydroxide/Simethicone Susp 30 ML Cup PO PRN (15:55)
[2023-05-21] MEDS ORDERED: guaiFENesin/Dextromethorphan 100-10 MG/5 ML Soln 5 ML Cup PO PRN (16:06)
[2023-05-21] MEDS: Sodium Chloride 0.9% 1,000 ML IV SCH (16:12)
[2023-05-21] MEDS: Simvastatin 40 MG Tab PO SCH (19:54)
[2023-05-21 22:42] LABS: % TRANSFERRIN SAT 25.7 % (20.0-50.0)
[2023-05-22] MEDS: Sodium Chloride 0.9% 1,000 ML IV SCH ×3 (02:22→22:26)
[2023-05-22] MEDS: Pantoprazole 40 MG Tab.CR PO SCH (06:09)
[2023-05-22 07:37] LABS: BASOPHILS ABSOLUTE AUTO 0.03 10^3/uL (0.00-0.50); BASOPHILS PERCENT AUTO 0.5 % (0-1); EOSINOPHILS ABSOLUTE AUTO 0.43 10^3/uL (0.00-1.50); EOSINOPHILS PERCENT AUTO 6.8 % (0-6); HEMATOCRIT 25.1 % (42.0-52.0); HEMOGLOBIN 8.1 g/dL (14.0-18.0); IMMATURE GRAN ABSOLUTE AUTO 0.05 10^3/uL (0.00-0.49); IMMATURE GRAN PERCENT AUTO 0.8 % (0.0-4.9); LYMPHOCYTES ABSOLUTE AUTO 1.12 10^3/uL (0.60-5.00); LYMPHOCYTES PERCENT AUTO 17.8 % (24-44); MEAN CORPUSCULAR HEMOGLOBIN 29.2 pg (27.0-32.0); MEAN CORPUSCULAR HGB CONC 32.3 g/dL (32.0-36.0); MEAN CORPUSCULAR VOLUME 90.6 fL (83.0-97.0); MONOCYTES ABSOLUTE AUTO 0.81 10^3/uL (0.00-1.50); MONOCYTES PERCENT AUTO 12.9 % (0-10); NEUTROPHILS ABSOLUTE AUTO 3.84 x10^3/uL (1.80-8.00); NEUTROPHILS PERCENT AUTO 61.2 % (41-71); PLATELET COUNT,PLT 174 10^3/uL (150-400); RED BLOOD CELL COUNT 2.77 x10^6/uL (4.50-6.00); WHITE BLOOD CELL COUNT,WBC 6.3 10^3/uL (4.0-11.0)
[2023-05-22] MEDS: Finasteride 5 MG Tab PO SCH (07:52)
[2023-05-22] MEDS: Tamsulosin 0.4 MG Cap.ER PO SCH (07:52)
[2023-05-22] MEDS: Acetaminophen 325 MG Tab PO PRN (07:52)
[2023-05-22 08:09] LABS: C-REACTIVE PROTEIN 0.99 mg/dL (<=0.30); CALCIUM 7.4 mg/dL (8.4-10.1); EST CRCL DRUG DOSING (CG) 6.94 mL/min; POTASSIUM,K 5.2 mEq/L (3.5-5.0)
[2023-05-22 08:16] LABS: CREATININE 5.9 mg/dL (0.7-1.3)
[2023-05-22] MEDS ORDERED: Lidocaine 2% Jelly 10 ML Urojet MUCMEM ONE ×2 (09:21→09:37)
[2023-05-22] MEDS ORDERED: Glucagon,Human Recombinant 1 MG Vial IM PRN (09:22)
[2023-05-22] MEDS ORDERED: 50% Dextrose in Water 50 ML Syringe IVPUSH PRN (09:22)
[2023-05-22] MEDS ORDERED: Furosemide 40 MG/4 ML VIAL IVPUSH ONE (09:47)
[2023-05-22 09:51] LABS: APPEARANCE,URINE SLIGHTLY CLOUDY (CLEAR); BILIRUBIN,URINE NEGATIVE (NEGATIVE); COLOR,URINE YELLOW (YELLOW); GLUCOSE,URINE NEGATIVE (NEGATIVE); KETONES,URINE NEGATIVE (NEGATIVE); LEUKOCYTE ESTERASE,URINE SMALL (NEGATIVE); NITRITE,URINE NEGATIVE (NEGATIVE); OCCULT BLOOD,URINE MODERATE (NEGATIVE); PH,URINE 5.5 (4.5-8.0); PROTEIN,URINE 30 mg/dL (NEGATIVE); UROBILINOGEN,URINE 0.2 EU/dL (0.2-1.0)
[2023-05-22 09:58] LABS: BACTERIA,URINE FEW /HPF (NOT SEEN); EPITHELIAL CELLS,URINE NOT SEEN /HPF (NOT SEEN); MUCUS,URINE FEW /HPF (NOT SEEN); WBC,URINE 40-50 /HPF (0-5)
[2023-05-22] MEDS: Insulin Lispro 100 Units/ML 3 ML Vial SUBCUT SCH ×2 (11:53→22:40)
[2023-05-22] MEDS: Nystatin Topical Powder 15 GM Bottle TOP SCH ×3 (11:54→22:40)
[2023-05-22] MEDS: cefTRIAXone 1 GM Vial IVPUSH SCH (11:55)
[2023-05-22] MEDS: Simvastatin 40 MG Tab PO SCH (19:35)
[2023-05-22] MEDS ORDERED: Enoxaparin 30 MG/0.3 ML Syringe SUBCUT SCH (20:00)
[2023-05-23] MEDS: Acetaminophen 325 MG Tab PO PRN ×2 (05:13→12:39)
[2023-05-23] MEDS: Pantoprazole 40 MG Tab.CR PO SCH (06:07)
[2023-05-23] MEDS: Tamsulosin 0.4 MG Cap.ER PO SCH (07:44)
[2023-05-23] MEDS: Finasteride 5 MG Tab PO SCH (07:44)
[2023-05-23] MEDS: Insulin Lispro 100 Units/ML 3 ML Vial SUBCUT SCH ×2 (07:45→12:10)
[2023-05-23] MEDS: Nystatin Topical Powder 15 GM Bottle TOP SCH ×2 (07:45→11:54)
[2023-05-23 07:59] LABS: CALCIUM 7.3 mg/dL (8.4-10.1); EST CRCL DRUG DOSING (CG) 9.31 mL/min; POTASSIUM,K 4.8 mEq/L (3.5-5.0)
[2023-05-23 08:06] LABS: BASOPHILS ABSOLUTE AUTO 0.04 10^3/uL (0.00-0.50); BASOPHILS PERCENT AUTO 0.7 % (0-1); EOSINOPHILS ABSOLUTE AUTO 0.38 10^3/uL (0.00-1.50); EOSINOPHILS PERCENT AUTO 6.5 % (0-6); HEMATOCRIT 23.7 % (42.0-52.0); HEMOGLOBIN 7.8 g/dL (14.0-18.0); IMMATURE GRAN ABSOLUTE AUTO 0.05 10^3/uL (0.00-0.49); IMMATURE GRAN PERCENT AUTO 0.9 % (0.0-4.9); LYMPHOCYTES ABSOLUTE AUTO 0.96 10^3/uL (0.60-5.00); LYMPHOCYTES PERCENT AUTO 16.4 % (24-44); MEAN CORPUSCULAR HEMOGLOBIN 30.2 pg (27.0-32.0); MEAN CORPUSCULAR HGB CONC 32.9 g/dL (32.0-36.0); MEAN CORPUSCULAR VOLUME 91.9 fL (83.0-97.0); MONOCYTES ABSOLUTE AUTO 0.64 10^3/uL (0.00-1.50); NEUTROPHILS ABSOLUTE AUTO 3.77 x10^3/uL (1.80-8.00); NEUTROPHILS PERCENT AUTO 64.5 % (41-71); PLATELET COUNT,PLT 182 10^3/uL (150-400); RED BLOOD CELL COUNT 2.58 x10^6/uL (4.50-6.00); WHITE BLOOD CELL COUNT,WBC 5.8 10^3/uL (4.0-11.0)
[2023-05-23 08:34] LABS: CREATININE 4.4 mg/dL (0.7-1.3)
[2023-05-23] MEDS: Sodium Chloride 0.9% 1,000 ML IV SCH (08:55)
[2023-05-23] MEDS: cefTRIAXone 1 GM Vial IVPUSH SCH (11:52)
[2023-05-23 14:16] VITALS: BP 98/51; PULSE 87
== END 2023-05-23 15:10 | disposition home or self-care (01) | DRG 872 ==
LOC: CC.FCMC 09:51 → CC.MS 09:51 → UNDOADMIN 11:38 → CC.MS 11:43
PROVIDERS: ADMIT Physician Assistant Medical; ATTEND Physician Assistant Medical
DX: A41.9 Sepsis, unspecified organism (principal); N17.9 Acute kidney failure, unspecified; T83.511A Infection and inflammatory reaction due to indwelling urethral catheter, initial encounter; N30.01 Acute cystitis with hematuria; R65.20 Severe sepsis without septic shock; B95.2 Enterococcus as the cause of diseases classified elsewhere; H91.90 Unspecified hearing loss, unspecified ear; E78.00 Pure hypercholesterolemia, unspecified; D64.9 Anemia, unspecified; E11.9 Type 2 diabetes mellitus without complications; Z90.49 Acquired absence of other specified parts of digestive tract; I10 Essential (primary) hypertension; I44.2 Atrioventricular block, complete; Z88.8 Allergy status to other drugs, medicaments and biological substances; Z98.890 Other specified postprocedural states; E78.2 Mixed hyperlipidemia; K21.9 Gastro-esophageal reflux disease without esophagitis; N40.0 Benign prostatic hyperplasia without lower urinary tract symptoms; Z79.84 Long term (current) use of oral hypoglycemic drugs; Z79.899 Other long term (current) drug therapy; Z95.0 Presence of cardiac pacemaker; Z86.16 Personal history of COVID-19; Y84.6 Urinary catheterization as the cause of abnormal reaction of the patient, or of later complication, without mention of misadventure at the time of the procedure
CPT/HCPCS: 36415; 74019; 74176; 80048; 80053; 81001; 82607; 82728; 82947; 83540; 83550; 83605; 83690; 84145; 85025; 86140; 87040; 87086; 87088; 87186; A9270-GY; J0696; J1650; J1940; J7030

== ENCOUNTER 2023-07-12 08:34 | Inpatient (IN) | payer MEDICARE, BC ==
[2023-07-12 09:31] LABS: HEMOGLOBIN 11.2 g/dL (14.0-18.0); MEAN CORPUSCULAR HEMOGLOBIN 28.1 pg (27.0-32.0); MEAN CORPUSCULAR HGB CONC 31.1 g/dL (32.0-36.0); MEAN CORPUSCULAR VOLUME 90.5 fL (83.0-97.0); PLATELET COUNT,PLT 235 10^3/uL (150-400); RED BLOOD CELL COUNT 3.98 x10^6/uL (4.50-6.00); WHITE BLOOD CELL COUNT,WBC 8.3 10^3/uL (4.0-11.0)
[2023-07-12 09:46] LABS: ALBUMIN 2.4 g/dL (3.4-5.0); BILIRUBIN TOTAL 0.4 mg/dL (0.0-1.0); C-REACTIVE PROTEIN 11.61 mg/dL (<=0.50); CALCIUM 8.3 mg/dL (8.4-10.1); EST CRCL DRUG DOSING (CG) 14.42 mL/min; MAGNESIUM 0.8 mg/dL (1.8-2.4); POTASSIUM,K 4.2 mEq/L (3.5-5.0); PROTEIN TOTAL,TP 6.4 g/dL (6.4-8.2)
[2023-07-12 09:46] LABS: APPEARANCE,URINE SLIGHTLY CLOUDY (CLEAR); BILIRUBIN,URINE NEGATIVE (NEGATIVE); COLOR,URINE YELLOW (YELLOW); GLUCOSE,URINE NEGATIVE (NEGATIVE); KETONES,URINE NEGATIVE (NEGATIVE); LEUKOCYTE ESTERASE,URINE SMALL (NEGATIVE); NITRITE,URINE NEGATIVE (NEGATIVE); OCCULT BLOOD,URINE LARGE (NEGATIVE); PH,URINE 5.5 (4.5-8.0); PROTEIN,URINE 100 mg/dL (NEGATIVE); UROBILINOGEN,URINE 0.2 EU/dL (0.2-1.0)
[2023-07-12 09:47] LABS: CREATININE 2.6 mg/dL (0.7-1.3)
[2023-07-12 09:57] LABS: LYMPHOCYTES ABSOLUTE MAN 1.08 10^3/uL (1.00-4.80); LYMPHOCYTES PERCENT MAN 13 % (21-55); MONOCYTES ABSOLUTE MAN 0.17 10^3/uL (0.00-0.80); MONOCYTES PERCENT MAN 2 % (2-12); NEUTROPHILS ABSOLUTE MAN 7.06 10^3/uL (1.80-7.00); SEG NEUTROPHILS PERCENT MAN 85 % (35-85)
[2023-07-12] MEDS ORDERED: cefTRIAXone 2 GM Vial IVPUSH ONE (10:05)
[2023-07-12] MEDS ORDERED: Sodium Chloride 0.9% 1,000 ML IV ONE (10:05)
[2023-07-12] MEDS ORDERED: Sodium Bicarbonate 100 MEQ in Dextrose 5% in Water 1,000 ML IV ONE ×2 (10:05)
[2023-07-12 10:10] LABS: BACTERIA,URINE FEW /HPF (NOT SEEN); RBC,URINE 75-100 /HPF (0-5); SQUAMOUS EPITHELIAL CELLS,UR OCCASIONAL /HPF (NOT SEEN); WBC,URINE 30-40 /HPF (0-5); YEAST,URINE MODERATE /HPF (NOT SEEN)
[2023-07-12 10:11] LABS: GRANULAR CASTS,URINE FEW /LPF (NOT SEEN)
[2023-07-12] MEDS ORDERED: FLUCONAZOLE IV STA (10:54)
[2023-07-12] MEDS ORDERED: NORMAL SALINE IV STA (10:54)
[2023-07-12] MEDS ORDERED: Magnesium Sulfate/Water 2 GM in Premix Bag 1 BAG IV ONE (11:28)
[2023-07-12] MEDS ORDERED: Acetaminophen 650 MG Supp RECTAL PRN (12:12)
[2023-07-12] MEDS ORDERED: Polyethylene Glycol 3350 Powder 17 GM Packet PO PRN (12:12)
[2023-07-12] MEDS ORDERED: Docusate Sodium 100 MG Cap PO PRN (12:12)
[2023-07-12] MEDS: Acetaminophen 325 MG Tab PO PRN (17:28)
[2023-07-12] MEDS ORDERED: Aluminum Hydroxide/Magnesium Hydroxide/Simethicone Susp 30 ML Cup PO PRN (19:19)
[2023-07-12] MEDS ORDERED: Bismuth Subsalicylate 262 MG/15 ML Susp 236 ML Bottle PO PRN (19:19)
[2023-07-12] MEDS ORDERED: guaiFENesin/Dextromethorphan 100-10 MG/5 ML Soln 5 ML Cup PO PRN (19:19)
[2023-07-12] MEDS: Nystatin Topical Powder 15 GM Bottle TOP SCH (22:39)
[2023-07-12] MEDS: Simvastatin 40 MG Tab PO SCH (22:40)
[2023-07-13] MEDS: Acetaminophen 325 MG Tab PO PRN ×3 (00:49→21:18)
[2023-07-13] MEDS: Pantoprazole 40 MG Tab.CR PO SCH (06:35)
[2023-07-13 07:35] LABS: BASOPHILS ABSOLUTE AUTO 0.04 10^3/uL (0.00-0.50); BASOPHILS PERCENT AUTO 0.6 % (0-1); EOSINOPHILS ABSOLUTE AUTO 0.02 10^3/uL (0.00-1.50); EOSINOPHILS PERCENT AUTO 0.3 % (0-6); HEMATOCRIT 31.3 % (42.0-52.0); HEMOGLOBIN 9.7 g/dL (14.0-18.0); IMMATURE GRAN ABSOLUTE AUTO 0.35 10^3/uL (0.00-0.49); IMMATURE GRAN PERCENT AUTO 5.3 % (0.0-4.9); LYMPHOCYTES ABSOLUTE AUTO 1.11 10^3/uL (0.60-5.00); LYMPHOCYTES PERCENT AUTO 16.8 % (24-44); MEAN CORPUSCULAR HEMOGLOBIN 28.3 pg (27.0-32.0); MEAN CORPUSCULAR VOLUME 91.3 fL (83.0-97.0); MONOCYTES ABSOLUTE AUTO 0.74 10^3/uL (0.00-1.50); MONOCYTES PERCENT AUTO 11.2 % (0-10); NEUTROPHILS ABSOLUTE AUTO 4.34 x10^3/uL (1.80-8.00); NEUTROPHILS PERCENT AUTO 65.8 % (41-71); PLATELET COUNT,PLT 209 10^3/uL (150-400); RED BLOOD CELL COUNT 3.43 x10^6/uL (4.50-6.00); WHITE BLOOD CELL COUNT,WBC 6.6 10^3/uL (4.0-11.0)
[2023-07-13] MEDS: Tamsulosin 0.4 MG Cap.ER PO SCH (07:49)
[2023-07-13] MEDS: Finasteride 5 MG Tab PO SCH (07:49)
[2023-07-13 07:54] LABS: CALCIUM 7.7 mg/dL (8.4-10.1); CREATININE 2.1 mg/dL (0.7-1.3); EST CRCL DRUG DOSING (CG) 17.86 mL/min; MAGNESIUM 1.6 mg/dL (1.8-2.4); POTASSIUM,K 3.7 mEq/L (3.5-5.0)
[2023-07-13] MEDS: Nystatin Topical Powder 15 GM Bottle TOP SCH ×4 (10:38→19:24)
[2023-07-13] MEDS: cefTRIAXone 1 GM Vial IVPUSH SCH (11:43)
[2023-07-13] MEDS ORDERED: Fluconazole/Normal Saline 200 MG in Premix Bag 1 BAG IV SCH (12:00)
[2023-07-13 13:53] LABS: APPEARANCE,URINE CLEAR (CLEAR); BILIRUBIN,URINE NEGATIVE (NEGATIVE); COLOR,URINE YELLOW (YELLOW); GLUCOSE,URINE 100 mg/dL (NEGATIVE); KETONES,URINE NEGATIVE (NEGATIVE); LEUKOCYTE ESTERASE,URINE NEGATIVE (NEGATIVE); NITRITE,URINE NEGATIVE (NEGATIVE); OCCULT BLOOD,URINE MODERATE (NEGATIVE); PH,URINE 5.5 (4.5-8.0); PROTEIN,URINE 100 mg/dL (NEGATIVE); UROBILINOGEN,URINE 0.2 EU/dL (0.2-1.0)
[2023-07-13 14:04] LABS: BACTERIA,URINE FEW /HPF (NOT SEEN); EPITHELIAL CELLS,URINE RARE /HPF (NOT SEEN); RBC,URINE 30-40 /HPF (0-5); YEAST,URINE OCCASIONAL /HPF (NOT SEEN)
[2023-07-13] MEDS ORDERED: Sodium Chloride 0.9% 1,000 ML IV SCH (18:15)
[2023-07-13] MEDS: Simvastatin 40 MG Tab PO SCH (19:24)
[2023-07-14] MEDS: Pantoprazole 40 MG Tab.CR PO SCH (06:21)
[2023-07-14] MEDS: Finasteride 5 MG Tab PO SCH (07:44)
[2023-07-14] MEDS: Nystatin Topical Powder 15 GM Bottle TOP SCH ×4 (07:44→19:49)
[2023-07-14] MEDS: Tamsulosin 0.4 MG Cap.ER PO SCH (07:44)
[2023-07-14 10:26] LABS: BASOPHILS ABSOLUTE AUTO 0.03 10^3/uL (0.00-0.50); BASOPHILS PERCENT AUTO 0.4 % (0-1); EOSINOPHILS ABSOLUTE AUTO 0.07 10^3/uL (0.00-1.50); HEMATOCRIT 31.8 % (42.0-52.0); HEMOGLOBIN 9.9 g/dL (14.0-18.0); IMMATURE GRAN ABSOLUTE AUTO 0.21 10^3/uL (0.00-0.49); IMMATURE GRAN PERCENT AUTO 2.9 % (0.0-4.9); LYMPHOCYTES ABSOLUTE AUTO 1.36 10^3/uL (0.60-5.00); MEAN CORPUSCULAR HEMOGLOBIN 28.5 pg (27.0-32.0); MEAN CORPUSCULAR HGB CONC 31.1 g/dL (32.0-36.0); MEAN CORPUSCULAR VOLUME 91.6 fL (83.0-97.0); MONOCYTES ABSOLUTE AUTO 0.59 10^3/uL (0.00-1.50); MONOCYTES PERCENT AUTO 8.2 % (0-10); NEUTROPHILS PERCENT AUTO 68.5 % (41-71); PLATELET COUNT,PLT 203 10^3/uL (150-400); RED BLOOD CELL COUNT 3.47 x10^6/uL (4.50-6.00); WHITE BLOOD CELL COUNT,WBC 7.2 10^3/uL (4.0-11.0)
[2023-07-14 10:41] LABS: ALBUMIN 2.1 g/dL (3.4-5.0); BILIRUBIN TOTAL 0.3 mg/dL (0.0-1.0); CREATININE 2.1 mg/dL (0.7-1.3); EST CRCL DRUG DOSING (CG) 17.86 mL/min; MAGNESIUM 1.6 mg/dL (1.8-2.4); PROTEIN TOTAL,TP 5.9 g/dL (6.4-8.2)
[2023-07-14] MEDS: cefTRIAXone 1 GM Vial IVPUSH SCH (12:47)
[2023-07-14] MEDS ORDERED: Enoxaparin 30 MG/0.3 ML Syringe SUBCUT SCH (14:30)
[2023-07-14] MEDS: Enoxaparin 30 MG/0.3 ML Syringe SUBCUT SCH (19:49)
[2023-07-14] MEDS: Simvastatin 40 MG Tab PO SCH (19:49)
[2023-07-15] MEDS: Pantoprazole 40 MG Tab.CR PO SCH (06:37)
[2023-07-15 07:15] LABS: BASOPHILS ABSOLUTE AUTO 0.04 10^3/uL (0.00-0.50); BASOPHILS PERCENT AUTO 0.5 % (0-1); EOSINOPHILS ABSOLUTE AUTO 0.21 10^3/uL (0.00-1.50); EOSINOPHILS PERCENT AUTO 2.7 % (0-6); HEMATOCRIT 30.4 % (42.0-52.0); HEMOGLOBIN 9.5 g/dL (14.0-18.0); IMMATURE GRAN ABSOLUTE AUTO 0.33 10^3/uL (0.00-0.49); IMMATURE GRAN PERCENT AUTO 4.2 % (0.0-4.9); LYMPHOCYTES ABSOLUTE AUTO 2.02 10^3/uL (0.60-5.00); LYMPHOCYTES PERCENT AUTO 25.9 % (24-44); MEAN CORPUSCULAR HEMOGLOBIN 28.5 pg (27.0-32.0); MEAN CORPUSCULAR HGB CONC 31.3 g/dL (32.0-36.0); MEAN CORPUSCULAR VOLUME 91.3 fL (83.0-97.0); MONOCYTES ABSOLUTE AUTO 0.81 10^3/uL (0.00-1.50); MONOCYTES PERCENT AUTO 10.4 % (0-10); NEUTROPHILS PERCENT AUTO 56.3 % (41-71); PLATELET COUNT,PLT 223 10^3/uL (150-400); RED BLOOD CELL COUNT 3.33 x10^6/uL (4.50-6.00); WHITE BLOOD CELL COUNT,WBC 7.8 10^3/uL (4.0-11.0)
[2023-07-15 07:44] LABS: CREATININE 1.9 mg/dL (0.7-1.3); EST CRCL DRUG DOSING (CG) 19.74 mL/min; MAGNESIUM 1.6 mg/dL (1.8-2.4); POTASSIUM,K 3.5 mEq/L (3.5-5.0)
[2023-07-15] MEDS: Tamsulosin 0.4 MG Cap.ER PO SCH (07:44)
[2023-07-15] MEDS: Nystatin Topical Powder 15 GM Bottle TOP SCH ×4 (07:44→19:17)
[2023-07-15] MEDS: Finasteride 5 MG Tab PO SCH (07:44)
[2023-07-15] MEDS: cefTRIAXone 1 GM Vial IVPUSH SCH (11:29)
[2023-07-15] MEDS: Enoxaparin 30 MG/0.3 ML Syringe SUBCUT SCH (19:17)
[2023-07-15] MEDS: Simvastatin 40 MG Tab PO SCH (19:17)
[2023-07-16 04:04] VITALS: BP 151/70; PULSE 75
[2023-07-16] MEDS: Pantoprazole 40 MG Tab.CR PO SCH (06:30)
[2023-07-16 07:24] LABS: BASOPHILS ABSOLUTE AUTO 0.05 10^3/uL (0.00-0.50); BASOPHILS PERCENT AUTO 0.6 % (0-1); EOSINOPHILS ABSOLUTE AUTO 0.42 10^3/uL (0.00-1.50); EOSINOPHILS PERCENT AUTO 5.2 % (0-6); HEMATOCRIT 30.5 % (42.0-52.0); HEMOGLOBIN 9.5 g/dL (14.0-18.0); IMMATURE GRAN ABSOLUTE AUTO 0.36 10^3/uL (0.00-0.49); IMMATURE GRAN PERCENT AUTO 4.5 % (0.0-4.9); LYMPHOCYTES ABSOLUTE AUTO 2.11 10^3/uL (0.60-5.00); LYMPHOCYTES PERCENT AUTO 26.3 % (24-44); MEAN CORPUSCULAR HEMOGLOBIN 28.5 pg (27.0-32.0); MEAN CORPUSCULAR HGB CONC 31.1 g/dL (32.0-36.0); MEAN CORPUSCULAR VOLUME 91.6 fL (83.0-97.0); MONOCYTES ABSOLUTE AUTO 0.71 10^3/uL (0.00-1.50); MONOCYTES PERCENT AUTO 8.9 % (0-10); NEUTROPHILS ABSOLUTE AUTO 4.36 x10^3/uL (1.80-8.00); NEUTROPHILS PERCENT AUTO 54.5 % (41-71); PLATELET COUNT,PLT 238 10^3/uL (150-400); RED BLOOD CELL COUNT 3.33 x10^6/uL (4.50-6.00)
[2023-07-16 07:36] LABS: CALCIUM 8.3 mg/dL (8.4-10.1); CREATININE 1.8 mg/dL (0.7-1.3); EST CRCL DRUG DOSING (CG) 20.83 mL/min; MAGNESIUM 1.6 mg/dL (1.8-2.4); POTASSIUM,K 3.9 mEq/L (3.5-5.0)
[2023-07-16] MEDS: Tamsulosin 0.4 MG Cap.ER PO SCH (07:54)
[2023-07-16] MEDS: Finasteride 5 MG Tab PO SCH (07:55)
[2023-07-16] MEDS: Nystatin Topical Powder 15 GM Bottle TOP SCH ×2 (08:20→12:15)
[2023-07-16] MEDS: cefTRIAXone 1 GM Vial IVPUSH SCH (12:41)
== END 2023-07-16 13:19 | disposition home or self-care (01) | DRG 683 ==
LOC: CC.ED 08:34 → CC.MS 11:24 → UNDOADMIN 11:24 → CC.MS 11:25
PROVIDERS: ADMIT Nurse Practitioner; ATTEND Nurse Practitioner
PROC: 0T2BX0Z Change Drainage Device in Bladder, External Approach (ICD-10-PCS; principal; 2023-07-12)
DX: N17.9 Acute kidney failure, unspecified (principal); R53.1 Weakness; E87.20 Acidosis, unspecified; N30.01 Acute cystitis with hematuria; Z66 Do not resuscitate; H91.90 Unspecified hearing loss, unspecified ear; E78.00 Pure hypercholesterolemia, unspecified; K21.9 Gastro-esophageal reflux disease without esophagitis; E11.9 Type 2 diabetes mellitus without complications; I11.0 Hypertensive heart disease with heart failure; I50.9 Heart failure, unspecified; Z86.16 Personal history of COVID-19; Z90.49 Acquired absence of other specified parts of digestive tract; Z98.890 Other specified postprocedural states; Z20.822 Contact with and (suspected) exposure to COVID-19; Z11.52 Encounter for screening for COVID-19; Z88.8 Allergy status to other drugs, medicaments and biological substances; Z79.899 Other long term (current) drug therapy; Z95.0 Presence of cardiac pacemaker
CPT/HCPCS: 36415; 51702; 71045; 74176; 80048; 80053; 81001; 82800; 83605; 83735; 84145; 84484; 85025; 86140; 87040; 87077; 87086; 87804; 93005; 93010; 96365; 96368; 96375; 99223; 99232; 99233; 99238; 99284-25; A9270-GY; J0696; J1450; J1650; J3475; J3490; J7030; J7060; U0002

== ENCOUNTER 2023-09-12 10:13 | Inpatient (IN) | payer MEDICARE, BC ==
[2023-09-12 10:30] LABS: BASOPHILS ABSOLUTE AUTO 0.03 10^3/uL (0.00-0.50); BASOPHILS PERCENT AUTO 0.3 % (0-1); EOSINOPHILS ABSOLUTE AUTO 0.05 10^3/uL (0.00-1.50); EOSINOPHILS PERCENT AUTO 0.5 % (0-6); HEMATOCRIT 33.8 % (42.0-52.0); HEMOGLOBIN 10.3 g/dL (14.0-18.0); IMMATURE GRAN ABSOLUTE AUTO 0.06 10^3/uL (0.00-0.49); IMMATURE GRAN PERCENT AUTO 0.5 % (0.0-4.9); LYMPHOCYTES ABSOLUTE AUTO 1.26 10^3/uL (0.60-5.00); LYMPHOCYTES PERCENT AUTO 11.5 % (24-44); MEAN CORPUSCULAR HEMOGLOBIN 25.4 pg (27.0-32.0); MEAN CORPUSCULAR HGB CONC 30.5 g/dL (32.0-36.0); MEAN CORPUSCULAR VOLUME 83.3 fL (83.0-97.0); MONOCYTES ABSOLUTE AUTO 0.76 10^3/uL (0.00-1.50); NEUTROPHILS ABSOLUTE AUTO 8.77 x10^3/uL (1.80-8.00); NEUTROPHILS PERCENT AUTO 80.2 % (41-71); PLATELET COUNT,PLT 228 10^3/uL (150-400); RED BLOOD CELL COUNT 4.06 x10^6/uL (4.50-6.00); WHITE BLOOD CELL COUNT,WBC 10.9 10^3/uL (4.0-11.0)
[2023-09-12 10:48] LABS: ALANINE AMINOTRANSFERASE,ALT 16 U/L (12-78); ALBUMIN 2.3 g/dL (3.4-5.0); ALKALINE PHOSPHATASE 76 U/L (46-116); ASPARTATE AMNIOTRANSFERASE,AST 19 U/L (15-37); BILIRUBIN TOTAL 0.4 mg/dL (0.0-1.0); BLOOD UREA NITROGEN,BUN 35 mg/dL (7-18); C-REACTIVE PROTEIN 13.02 mg/dL (<=0.50); CALCIUM 8.7 mg/dL (8.4-10.1); CARBON DIOXIDE,CO2 24 mmol/L (21-32); CHLORIDE,CL 108 mEq/L (98-106); CREATININE 2.3 mg/dL (0.7-1.3); GLUCOSE RANDOM 278 mg/dL (75-99); POTASSIUM,K 4.6 mEq/L (3.5-5.0); PROTEIN TOTAL,TP 6.5 g/dL (6.4-8.2); SODIUM,NA 143 mEq/L (136-145)
[2023-09-12 10:49] LABS: ESTIMATED GFR 27 mL/min (>=60)
[2023-09-12] MEDS ORDERED: Ondansetron 4 MG/2 ML SDV IV PRN (11:48)
[2023-09-12] MEDS ORDERED: Polyethylene Glycol 3350 Powder 17 GM Packet PO PRN (11:48)
[2023-09-12] MEDS ORDERED: Ondansetron 4 MG Tab.DIS PO PRN (11:48)
[2023-09-12] MEDS ORDERED: Docusate Sodium 100 MG Cap PO PRN (11:48)
[2023-09-12] MEDS: Piperacillin/Tazobactam 4.5 GM in Sodium Chloride 0.9% 100 ML IV ONE (12:50)
[2023-09-12] MEDS: Sodium Chloride 0.9% 1,000 ML IV SCH (12:52)
[2023-09-12] MEDS: Piperacillin/Tazobactam 4.5 GM in Sodium Chloride 0.9% 100 ML IV SCH (16:52)
[2023-09-12 21:04] LABS: APPEARANCE,URINE CLEAR (CLEAR); BILIRUBIN,URINE NEGATIVE (NEGATIVE); COLOR,URINE YELLOW (YELLOW); GLUCOSE,URINE NEGATIVE (NEGATIVE); KETONES,URINE NEGATIVE (NEGATIVE); LEUKOCYTE ESTERASE,URINE LARGE (NEGATIVE); NITRITE,URINE NEGATIVE (NEGATIVE); OCCULT BLOOD,URINE MODERATE (NEGATIVE); PROTEIN,URINE 30 mg/dL (NEGATIVE); UROBILINOGEN,URINE 0.2 EU/dL (0.2-1.0)
[2023-09-12 21:11] LABS: BACTERIA,URINE MODERATE /HPF (NOT SEEN); EPITHELIAL CELLS,URINE OCCASIONAL /HPF (NOT SEEN); MUCUS,URINE FEW /HPF (NOT SEEN); WBC,URINE 40-50 /HPF (0-5)
[2023-09-12] MEDS: Pantoprazole 40 MG Vial IVPUSH ONE (22:53)
[2023-09-13] MEDS: Acetaminophen 325 MG Tab PO PRN (07:29)
[2023-09-13] MEDS: Pantoprazole 40 MG Vial IVPUSH SCH (07:30)
[2023-09-13 07:46] LABS: BASOPHILS ABSOLUTE AUTO 0.04 10^3/uL (0.00-0.50); BASOPHILS PERCENT AUTO 0.4 % (0-1); HEMATOCRIT 29.7 % (42.0-52.0); IMMATURE GRAN ABSOLUTE AUTO 0.08 10^3/uL (0.00-0.49); IMMATURE GRAN PERCENT AUTO 0.8 % (0.0-4.9); LYMPHOCYTES ABSOLUTE AUTO 1.45 10^3/uL (0.60-5.00); LYMPHOCYTES PERCENT AUTO 14.9 % (24-44); MEAN CORPUSCULAR HEMOGLOBIN 25.1 pg (27.0-32.0); MEAN CORPUSCULAR HGB CONC 30.3 g/dL (32.0-36.0); MONOCYTES ABSOLUTE AUTO 0.93 10^3/uL (0.00-1.50); MONOCYTES PERCENT AUTO 9.6 % (0-10); NEUTROPHILS ABSOLUTE AUTO 7.12 x10^3/uL (1.80-8.00); NEUTROPHILS PERCENT AUTO 73.3 % (41-71); PLATELET COUNT,PLT 238 10^3/uL (150-400); RED BLOOD CELL COUNT 3.58 x10^6/uL (4.50-6.00); WHITE BLOOD CELL COUNT,WBC 9.7 10^3/uL (4.0-11.0)
[2023-09-13 08:14] LABS: CALCIUM 8.3 mg/dL (8.4-10.1); CREATININE 1.8 mg/dL (0.7-1.3); EST CRCL DRUG DOSING (CG) 22.75 mL/min; MAGNESIUM 1.6 mg/dL (1.8-2.4); POTASSIUM,K 4.1 mEq/L (3.5-5.0)
[2023-09-14 04:07] VITALS: BP 157/74; PULSE 61
[2023-09-14 07:47] LABS: BASOPHILS ABSOLUTE AUTO 0.03 10^3/uL (0.00-0.50); BASOPHILS PERCENT AUTO 0.4 % (0-1); EOSINOPHILS ABSOLUTE AUTO 0.15 10^3/uL (0.00-1.50); EOSINOPHILS PERCENT AUTO 1.8 % (0-6); HEMATOCRIT 30.9 % (42.0-52.0); HEMOGLOBIN 9.4 g/dL (14.0-18.0); IMMATURE GRAN ABSOLUTE AUTO 0.09 10^3/uL (0.00-0.49); IMMATURE GRAN PERCENT AUTO 1.1 % (0.0-4.9); LYMPHOCYTES ABSOLUTE AUTO 1.48 10^3/uL (0.60-5.00); MEAN CORPUSCULAR HEMOGLOBIN 25.3 pg (27.0-32.0); MEAN CORPUSCULAR HGB CONC 30.4 g/dL (32.0-36.0); MEAN CORPUSCULAR VOLUME 83.1 fL (83.0-97.0); MONOCYTES ABSOLUTE AUTO 0.79 10^3/uL (0.00-1.50); MONOCYTES PERCENT AUTO 9.6 % (0-10); NEUTROPHILS PERCENT AUTO 69.1 % (41-71); PLATELET COUNT,PLT 227 10^3/uL (150-400); RED BLOOD CELL COUNT 3.72 x10^6/uL (4.50-6.00); WHITE BLOOD CELL COUNT,WBC 8.2 10^3/uL (4.0-11.0)
[2023-09-14 07:59] LABS: CALCIUM 8.3 mg/dL (8.4-10.1); CREATININE 1.8 mg/dL (0.7-1.3); EST CRCL DRUG DOSING (CG) 22.75 mL/min; MAGNESIUM 1.6 mg/dL (1.8-2.4); POTASSIUM,K 4.2 mEq/L (3.5-5.0)
== END 2023-09-14 10:35 | disposition home or self-care (01) | DRG 690 ==
LOC: CC.ACU 10:13 → CC.FCMC 10:13 → CC.MS 11:23 → UNDOADMIN 11:23 → CC.MS 11:48
PROVIDERS: ADMIT Family Medicine; ATTEND Nurse Practitioner
PROC: 0T2BX0Z Change Drainage Device in Bladder, External Approach (ICD-10-PCS; principal; 2023-09-12)
DX: N30.01 Acute cystitis with hematuria (principal); E87.20 Acidosis, unspecified; I11.0 Hypertensive heart disease with heart failure; I50.9 Heart failure, unspecified; M54.2 Cervicalgia; M54.6 Pain in thoracic spine; H91.90 Unspecified hearing loss, unspecified ear; B95.2 Enterococcus as the cause of diseases classified elsewhere; E78.00 Pure hypercholesterolemia, unspecified; K21.9 Gastro-esophageal reflux disease without esophagitis; E11.9 Type 2 diabetes mellitus without complications; Z91.81 History of falling; Z88.8 Allergy status to other drugs, medicaments and biological substances; Z79.899 Other long term (current) drug therapy; Z88.1 Allergy status to other antibiotic agents; Z95.0 Presence of cardiac pacemaker; Z86.16 Personal history of COVID-19; Z90.49 Acquired absence of other specified parts of digestive tract; Z98.890 Other specified postprocedural states; W19.XXXA Unspecified fall, initial encounter
CPT/HCPCS: 36415; 70450; 71045; 72125; 80048; 80053; 81001; 81003; 83605; 83735; 84145; 85025; 86140; 87040; 87077; 87086; 87088; 87186; 87804; 99223; 99233; 99238; A9270-GY; C9113; J2543; J3490; J7030; U0002

== ENCOUNTER 2023-10-26 13:47 | Inpatient (IN) | payer MEDICARE, BC ==
[2023-10-26 14:18] LABS: BASOPHILS ABSOLUTE AUTO 0.03 10^3/uL (0.00-0.50); BASOPHILS PERCENT AUTO 0.1 % (0-1); EOSINOPHILS ABSOLUTE AUTO 0.03 10^3/uL (0.00-1.50); EOSINOPHILS PERCENT AUTO 0.1 % (0-6); HEMATOCRIT 36.8 % (42.0-52.0); HEMOGLOBIN 11.2 g/dL (14.0-18.0); IMMATURE GRAN ABSOLUTE AUTO 0.07 10^3/uL (0.00-0.49); IMMATURE GRAN PERCENT AUTO 0.3 % (0.0-4.9); LYMPHOCYTES ABSOLUTE AUTO 1.38 10^3/uL (0.60-5.00); LYMPHOCYTES PERCENT AUTO 6.4 % (24-44); MEAN CORPUSCULAR HEMOGLOBIN 25.9 pg (27.0-32.0); MEAN CORPUSCULAR HGB CONC 30.4 g/dL (32.0-36.0); MEAN CORPUSCULAR VOLUME 85.2 fL (83.0-97.0); MONOCYTES ABSOLUTE AUTO 1.47 10^3/uL (0.00-1.50); MONOCYTES PERCENT AUTO 6.8 % (0-10); NEUTROPHILS ABSOLUTE AUTO 18.48 x10^3/uL (1.80-8.00); NEUTROPHILS PERCENT AUTO 86.3 % (41-71); PLATELET COUNT,PLT 296 10^3/uL (150-400); RED BLOOD CELL COUNT 4.32 x10^6/uL (4.50-6.00)
[2023-10-26 14:21] LABS: WHITE BLOOD CELL COUNT,WBC 21.5 10^3/uL (4.0-11.0)
[2023-10-26 14:48] LABS: ALBUMIN 2.6 g/dL (3.4-5.0); BILIRUBIN TOTAL 0.5 mg/dL (0.0-1.0); C-REACTIVE PROTEIN 5.57 mg/dL (<=0.50); CALCIUM 8.5 mg/dL (8.4-10.1); CREATININE 1.9 mg/dL (0.7-1.3); EST CRCL DRUG DOSING (CG) 19.74 mL/min; MAGNESIUM 1.7 mg/dL (1.8-2.4); POTASSIUM,K 5.4 mEq/L (3.5-5.0); PROTEIN TOTAL,TP 6.4 g/dL (6.4-8.2)
[2023-10-26] MEDS: Sodium Chloride 0.9% 1,000 ML IV ONE (14:50)
[2023-10-26] MEDS ORDERED: Polyethylene Glycol 3350 Powder 17 GM Packet PO PRN (15:03)
[2023-10-26] MEDS ORDERED: Ondansetron 4 MG/2 ML SDV IV PRN (15:03)
[2023-10-26] MEDS ORDERED: Ondansetron 4 MG Tab.DIS PO PRN (15:03)
[2023-10-26] MEDS ORDERED: Docusate Sodium 100 MG Cap PO PRN (15:03)
[2023-10-26] MEDS ORDERED: Cefepime 2 GM Vial IVPUSH SCH (15:15)
[2023-10-26] MEDS: Cefepime 2 GM Vial IVPUSH ONE (15:26)
[2023-10-26 15:44] LABS: APPEARANCE,URINE CLEAR (CLEAR); BILIRUBIN,URINE NEGATIVE (NEGATIVE); COLOR,URINE YELLOW (YELLOW); GLUCOSE,URINE NEGATIVE (NEGATIVE); KETONES,URINE NEGATIVE (NEGATIVE); LEUKOCYTE ESTERASE,URINE TRACE (NEGATIVE); NITRITE,URINE NEGATIVE (NEGATIVE); OCCULT BLOOD,URINE NEGATIVE (NEGATIVE); PH,URINE 5.5 (4.5-8.0); PROTEIN,URINE TRACE mg/dL (NEGATIVE); UROBILINOGEN,URINE 0.2 EU/dL (0.2-1.0)
[2023-10-26 15:50] LABS: BACTERIA,URINE OCCASIONAL /HPF (NOT SEEN); EPITHELIAL CELLS,URINE NOT SEEN /HPF (NOT SEEN); MUCUS,URINE FEW /HPF (NOT SEEN); RBC,URINE NOT SEEN /HPF (0-5); WBC,URINE 0-5 /HPF (0-5)
[2023-10-26] MEDS: Sodium Chloride 0.9% 1,000 ML IV SCH (15:53)
[2023-10-26] MEDS: VANCOmycin 1 GM/200 ML 1 GM in Premix Bag 1 BAG IV ONE (15:53)
[2023-10-26] MEDS: Acetaminophen 325 MG Tab PO PRN (17:43)
[2023-10-26] MEDS: atorvaSTATin 20 MG Tab PO SCH (19:44)
[2023-10-26] MEDS: Magnesium Chloride 64 MG Tab.ER PO SCH (19:44)
[2023-10-26] MEDS: Ferrous Sulfate 324 MG Tab.EC PO SCH (19:44)
[2023-10-26] MEDS: Mirtazapine 15 MG Tab PO SCH (19:44)
[2023-10-26] MEDS: Non-Formulary Medication 1 Each (D-Mannose [Azo D-Mannose] 500 MG Cap) PO SCH (21:27)
[2023-10-27] MEDS: Enoxaparin 30 MG/0.3 ML Syringe SUBCUT SCH (07:34)
[2023-10-27] MEDS: Cefepime 1 GM in Sodium Chloride 0.9% 100 ML IV SCH (07:37)
[2023-10-27] MEDS: Metoprolol Succinate 100 MG Tab.ER PO SCH (07:39)
[2023-10-27] MEDS: Tamsulosin 0.4 MG Cap.ER PO SCH (07:39)
[2023-10-27] MEDS: Ezetimibe 10 MG Tab PO SCH (07:40)
[2023-10-27] MEDS: Finasteride 5 MG Tab PO SCH (07:40)
[2023-10-27] MEDS: Aspirin 81 MG Tab.EC PO SCH (07:40)
[2023-10-27 08:05] LABS: BASOPHILS ABSOLUTE AUTO 0.05 10^3/uL (0.00-0.50); BASOPHILS PERCENT AUTO 0.4 % (0-1); EOSINOPHILS ABSOLUTE AUTO 0.12 10^3/uL (0.00-1.50); EOSINOPHILS PERCENT AUTO 0.9 % (0-6); HEMATOCRIT 33.4 % (42.0-52.0); IMMATURE GRAN ABSOLUTE AUTO 0.05 10^3/uL (0.00-0.49); IMMATURE GRAN PERCENT AUTO 0.4 % (0.0-4.9); LYMPHOCYTES ABSOLUTE AUTO 1.08 10^3/uL (0.60-5.00); LYMPHOCYTES PERCENT AUTO 7.8 % (24-44); MEAN CORPUSCULAR HEMOGLOBIN 26.1 pg (27.0-32.0); MEAN CORPUSCULAR HGB CONC 29.9 g/dL (32.0-36.0); MEAN CORPUSCULAR VOLUME 87.2 fL (83.0-97.0); MONOCYTES ABSOLUTE AUTO 0.77 10^3/uL (0.00-1.50); MONOCYTES PERCENT AUTO 5.6 % (0-10); NEUTROPHILS ABSOLUTE AUTO 11.77 x10^3/uL (1.80-8.00); NEUTROPHILS PERCENT AUTO 84.9 % (41-71); PLATELET COUNT,PLT 237 10^3/uL (150-400); RED BLOOD CELL COUNT 3.83 x10^6/uL (4.50-6.00); WHITE BLOOD CELL COUNT,WBC 13.8 10^3/uL (4.0-11.0)
[2023-10-27 08:34] LABS: CALCIUM 7.7 mg/dL (8.4-10.1); CREATININE 1.8 mg/dL (0.7-1.3); EST CRCL DRUG DOSING (CG) 20.83 mL/min; MAGNESIUM 1.5 mg/dL (1.8-2.4)
[2023-10-27] MEDS: Vancomycin 125 MG Cap PO SCH (15:45)
[2023-10-27] MEDS: Magnesium Sulfate/Water 2 GM in Premix Bag 1 BAG IV ONE (16:52)
[2023-10-28 08:06] LABS: BASOPHILS ABSOLUTE AUTO 0.04 10^3/uL (0.00-0.50); BASOPHILS PERCENT AUTO 0.5 % (0-1); EOSINOPHILS ABSOLUTE AUTO 0.34 10^3/uL (0.00-1.50); IMMATURE GRAN ABSOLUTE AUTO 0.05 10^3/uL (0.00-0.49); IMMATURE GRAN PERCENT AUTO 0.6 % (0.0-4.9); LYMPHOCYTES ABSOLUTE AUTO 1.59 10^3/uL (0.60-5.00); LYMPHOCYTES PERCENT AUTO 18.7 % (24-44); MEAN CORPUSCULAR HEMOGLOBIN 26.2 pg (27.0-32.0); MEAN CORPUSCULAR HGB CONC 30.3 g/dL (32.0-36.0); MEAN CORPUSCULAR VOLUME 86.4 fL (83.0-97.0); MONOCYTES ABSOLUTE AUTO 0.91 10^3/uL (0.00-1.50); MONOCYTES PERCENT AUTO 10.7 % (0-10); NEUTROPHILS ABSOLUTE AUTO 5.56 x10^3/uL (1.80-8.00); NEUTROPHILS PERCENT AUTO 65.5 % (41-71); PLATELET COUNT,PLT 230 10^3/uL (150-400); RED BLOOD CELL COUNT 3.82 x10^6/uL (4.50-6.00); WHITE BLOOD CELL COUNT,WBC 8.5 10^3/uL (4.0-11.0)
[2023-10-28 08:19] LABS: CALCIUM 7.9 mg/dL (8.4-10.1); CREATININE 1.6 mg/dL (0.7-1.3); EST CRCL DRUG DOSING (CG) 23.44 mL/min; MAGNESIUM 2.3 mg/dL (1.8-2.4); POTASSIUM,K 4.6 mEq/L (3.5-5.0)
[2023-10-29 07:39] LABS: BASOPHILS ABSOLUTE AUTO 0.04 10^3/uL (0.00-0.50); BASOPHILS PERCENT AUTO 0.5 % (0-1); EOSINOPHILS ABSOLUTE AUTO 0.49 10^3/uL (0.00-1.50); EOSINOPHILS PERCENT AUTO 6.6 % (0-6); HEMATOCRIT 31.3 % (42.0-52.0); HEMOGLOBIN 9.4 g/dL (14.0-18.0); IMMATURE GRAN ABSOLUTE AUTO 0.07 10^3/uL (0.00-0.49); IMMATURE GRAN PERCENT AUTO 0.9 % (0.0-4.9); LYMPHOCYTES ABSOLUTE AUTO 1.43 10^3/uL (0.60-5.00); LYMPHOCYTES PERCENT AUTO 19.2 % (24-44); MEAN CORPUSCULAR VOLUME 86.7 fL (83.0-97.0); MONOCYTES ABSOLUTE AUTO 0.71 10^3/uL (0.00-1.50); MONOCYTES PERCENT AUTO 9.5 % (0-10); NEUTROPHILS ABSOLUTE AUTO 4.71 x10^3/uL (1.80-8.00); NEUTROPHILS PERCENT AUTO 63.3 % (41-71); PLATELET COUNT,PLT 232 10^3/uL (150-400); RED BLOOD CELL COUNT 3.61 x10^6/uL (4.50-6.00); WHITE BLOOD CELL COUNT,WBC 7.5 10^3/uL (4.0-11.0)
[2023-10-29 07:53] LABS: CALCIUM 7.7 mg/dL (8.4-10.1); CREATININE 1.6 mg/dL (0.7-1.3); EST CRCL DRUG DOSING (CG) 23.44 mL/min; MAGNESIUM 2.1 mg/dL (1.8-2.4); POTASSIUM,K 4.3 mEq/L (3.5-5.0)
[2023-10-30 07:24] VITALS: BP 151/63; PULSE 60
[2023-10-30 07:41] LABS: BASOPHILS ABSOLUTE AUTO 0.04 10^3/uL (0.00-0.50); BASOPHILS PERCENT AUTO 0.5 % (0-1); EOSINOPHILS ABSOLUTE AUTO 0.46 10^3/uL (0.00-1.50); EOSINOPHILS PERCENT AUTO 6.2 % (0-6); HEMATOCRIT 33.1 % (42.0-52.0); HEMOGLOBIN 10.1 g/dL (14.0-18.0); IMMATURE GRAN ABSOLUTE AUTO 0.08 10^3/uL (0.00-0.49); IMMATURE GRAN PERCENT AUTO 1.1 % (0.0-4.9); LYMPHOCYTES ABSOLUTE AUTO 1.41 10^3/uL (0.60-5.00); MEAN CORPUSCULAR HEMOGLOBIN 26.4 pg (27.0-32.0); MEAN CORPUSCULAR HGB CONC 30.5 g/dL (32.0-36.0); MEAN CORPUSCULAR VOLUME 86.4 fL (83.0-97.0); MONOCYTES ABSOLUTE AUTO 0.58 10^3/uL (0.00-1.50); MONOCYTES PERCENT AUTO 7.8 % (0-10); NEUTROPHILS ABSOLUTE AUTO 4.86 x10^3/uL (1.80-8.00); NEUTROPHILS PERCENT AUTO 65.4 % (41-71); PLATELET COUNT,PLT 259 10^3/uL (150-400); RED BLOOD CELL COUNT 3.83 x10^6/uL (4.50-6.00); WHITE BLOOD CELL COUNT,WBC 7.4 10^3/uL (4.0-11.0)
[2023-10-30 07:45] LABS: ALBUMIN 2.2 g/dL (3.4-5.0); BILIRUBIN TOTAL 0.2 mg/dL (0.0-1.0); C-REACTIVE PROTEIN 0.79 mg/dL (<=0.50); CALCIUM 7.9 mg/dL (8.4-10.1); CREATININE 1.5 mg/dL (0.7-1.3); PROTEIN TOTAL,TP 5.5 g/dL (6.4-8.2)
== END 2023-10-30 09:47 | DRG 372 ==
LOC: UNDOADMOB 13:47 → CC.MS 13:47 → UNDOADMOB 15:13 → OBSVTOIN 15:13 → CC.MS 15:13 → INTOOBSV 15:13
PROVIDERS: ADMIT Nurse Practitioner; ATTEND Nurse Practitioner Family
DX: A04.72 Enterocolitis due to Clostridium difficile, not specified as recurrent (principal); F03.93 Unspecified dementia, unspecified severity, with mood disturbance; T82.7XXA Infection and inflammatory reaction due to other cardiac and vascular devices, implants and grafts, initial encounter; I38 Endocarditis, valve unspecified; H91.90 Unspecified hearing loss, unspecified ear; H54.7 Unspecified visual loss; Z66 Do not resuscitate; I11.0 Hypertensive heart disease with heart failure; I50.9 Heart failure, unspecified; E78.00 Pure hypercholesterolemia, unspecified; K21.9 Gastro-esophageal reflux disease without esophagitis; N40.0 Benign prostatic hyperplasia without lower urinary tract symptoms; M19.90 Unspecified osteoarthritis, unspecified site; E11.9 Type 2 diabetes mellitus without complications; Z88.8 Allergy status to other drugs, medicaments and biological substances; Z79.82 Long term (current) use of aspirin; Z79.899 Other long term (current) drug therapy; Z95.0 Presence of cardiac pacemaker; Z85.49 Personal history of malignant neoplasm of other male genital organs; Z86.16 Personal history of COVID-19; Z90.49 Acquired absence of other specified parts of digestive tract; Z98.890 Other specified postprocedural states
CPT/HCPCS: 36415; 71045; 80048; 80053; 80202; 81001; 83605; 83735; 84145; 84484; 85025; 86140; 87040; 87077; 87086; 87493; 87804; 93005; 93010; 99223; 99232; 99233; 99239; A9270-GY; J0692; J1650; J3370; J3475; J3490; J7030; J7050; U0002